=== PATIENT | male | born 1960 | race Caucasian/White ===

== ENCOUNTER → 2022-04-11 13:00 | Outpatient (CLI) | payer BC, SELFPAY ==
--- NOTE | ~2022-04-11 | XR_ITS ---
Left Shoulder Technique: AP and axillary views were obtained. Clinical History: Pain Findings: No fracture or dislocation is seen. Osseous alignment is anatomic. The glenohumeral and acr omioclavicular joint spaces are preserved. Soft tissues are unremarkable. Impression: Unremarkable left shoulder radiographs. Reviewed, dictated and finalized at [facility]. [place] Impression: Unremarkable left shoulder radiographs.
== END ==
PROVIDERS: PCP Internal Medicine; Visit Provider Internal Medicine
DX: M25.512 Pain in left shoulder (principal)
CPT/HCPCS: 73030

== ENCOUNTER 2022-09-29 08:10 | Emergency (ER) | payer BC, SELFPAY ==
[2022-09-29 08:19] VITALS: BP 149/75; PULSE 62; RESP 16; TEMP 36.8; O2SAT 99
--- NOTE | 2022-09-29 08:28 | ED.URI ---
HPI - URI/Sore Throat General Chief Complaint: Upper Respiratory Infection Stated Complaint: sore throat Time Seen by Provider: 09/29/22 08:37 Source: patient and RN notes reviewed Mode of arrival: ambulatory Limitations: no limitations History of Present Illness HPI Narrative: 62 year old male presents with concern for 1 week of sore throat. He reports using spray that doesn't help. He denies fever, aches, chills, sweats, nausea, vomiting, headache. He reports chronic rhinorrhea and nasal congestion for which he uses Afrin, denies any change in that symptom. Denies known sick contacts MD elicited complaint: sore throat Related Data Home Medications Medication Instructions Recorded Confirmed metformin 500 mg tablet,extended 500 mg PO DAILY 09/29/22 09/29/22 release 24 hr rivaroxaban 20 mg tablet (Xarelto) 20 mg PO DAILY 09/29/22 09/29/22 rosuvastatin 5 mg tablet 5 mg PO DAILY 09/29/22 09/29/22 telmisartan 40 mg tablet 40 mg PO DAILY 09/29/22 09/29/22 Allergies Allergy/AdvReac Type Severity Reaction Status Date / Time topiramate Allergy Unknown Hives, Verified 09/29/22 08:19 itching Review of Systems Review of Systems: CONSTITUTIONAL: Denies malaise, chills, sweats, or fever. EYES: Denies visual changes, redness, or discharge. ENT: Reports rhinorrhea, congestion, sore throat. Denies sinus pain, otalgia CARDIOVASCULAR: Denies chest pain, palpitations, or edema. RESPIRATORY: Denies cough. Denies dyspnea. GASTROINTESTINAL: Denies abdominal pain, nausea, vomiting, diarrhea SKIN: Denies rash or itching. MUSCULOSKELETAL: Denies myalgia. NEUROLOGIC: Denies headache. All systems reviewed & are unremarkable except as noted in HPI and below PMFSH Social History Social History Smoking status: Never smoker Comments At time of signature, agree with nursing past medical, surgical, social and family history. There is no relevant family history pertinent to the presenting complaint Exam Narrative: GENERAL: Well-appearing, well-nourished, and in no acute distress. HEAD: Normocephalic EYES: PERRLA, conjunctivae clear ENT: Nares clear, turbinates edematous and erythematous, clear discharge. Mucous membranes moist. TM pearly owens with dull light reflex bilaterally; no tragal tenderness. Oropharynx erythematous without lesions. Tonsils enlarged and without exudate, no drooling, no hoarseness, no trismus, uvula midline. NECK: Supple. No lymphadenopathy CHEST: Clear to auscultation, breath sounds equal. No wheezing, rhonchi, rales, or stridor. No respiratory distress, speaks in full sentences. HEART: Regular rate and rhythm. No murmur heard. SKIN: Warm, dry, no rash. NEURO: Alert and oriented x3. PSYCH: Normal mood and affect Course Course Emergency Course: Patient is aware of diagnosis, understands and agrees to treatment plan. Anticipatory guidance given. Patient agrees to follow-up as directed and is aware of reasons to seek care at the emergency department. Portions of this record may have been created with voice recognition software Level of Care: Express Care Visit Vital Signs Vital signs: Vital Signs Temperature 98.3 F 09/29/22 08:19 Pulse Rate 62 09/29/22 08:19 Respiratory Rate 16 09/29/22 08:19 Blood Pressure 149/75 H 09/29/22 08:19 Pulse Oximetry 99 09/29/22 08:19 Oxygen Delivery Room Air 09/29/22 08:19 Temperature 98.3 F 09/29/22 08:19 Pulse Rate 62 09/29/22 08:19 Respiratory Rate 16 09/29/22 08:19 Blood Pressure 149/75 H 09/29/22 08:19 Pulse Oximetry 99 09/29/22 08:19 Oxygen Delivery Room Air 09/29/22 08:19 Reviewed. MDM - URI/Sore Throat MDM Narrative Medical decision making narrative: Differential diagnosis considered: Penny virus, strep pharyngitis, allergic rhinitis, upper respiratory tract infection, sinusitis, rhinosinusitis, nasopharyngitis. viral pharyngitis, otitis media, otitis externa, pneumonia, bronchitis, viral cough synd
== END 2022-09-29 08:51 | disposition home or self-care (01) ==
PROVIDERS: Emergency Provider Nurse Practitioner; PCP Internal Medicine
DX: J02.9 Acute pharyngitis, unspecified (principal); E78.00 Pure hypercholesterolemia, unspecified; I10 Essential (primary) hypertension; E11.9 Type 2 diabetes mellitus without complications; G47.30 Sleep apnea, unspecified; D68.51 Activated protein C resistance; C95.90 Leukemia, unspecified not having achieved remission; D75.9 Disease of blood and blood-forming organs, unspecified
CPT/HCPCS: 87081; 87880; 99213; G0463

== ENCOUNTER → 2022-10-16 13:24 | Outpatient (CLI) | payer BC, SELFPAY ==
--- NOTE | ~2022-10-16 | CT_ITS ---
CT scan of the Neck Technique: 2.5 mm axial scans were obtained through the neck prior to and following intravenous admin istration of 75 cc Omnipaque 350. Coronal and sagittal reconstructions of the neck were obtained. Dos e reduction technique was used on this scan by utilizing automated exposure control and iterative rec onstruction technique. The dose-length product (DLP) was 909.11 mGy-cm. Clinical History: Swelling, mass Findings: There is no evidence of any significant cervical lymphadenopathy. Several small, nonenlarged jugulo- digastric and posterior cervical lymph nodes are noted bilaterally. Parapharyngeal spaces appear norm al bilaterally. The parotid and submandibular glands appear normal. Questionable minimal prominence of the tonsils without evidence of abscess. The thyroid gland appears normal. Images of the lung apices reveal 8 mm probable groundglass nodule a t the right lung apex. Disc osteophyte complex noted at C6-C7, probable mild to moderate canal stenosis at this level. Impression: Possible mild tonsillitis. No abscess. 8 mm groundglass nodule at the right lung apex. According to Fleischner Society criteria, follow-up C T scan in 6-12 months recommended to reassess. Disc osteophyte complex at C6-C7, with probable mild to possibly moderate canal stenosis at this leve l. Reviewed, dictated and finalized at location . Impression: Possible mild tonsillitis. No abscess. 8 mm groundglass nodule at the right lung apex. According to Fleischner Society criteria, follow-up CT scan in 6-12 months recommended to reassess. Disc osteophyte complex at C6-C7, with probable mild to possibly moderate canal stenosis at this level.
[2022-10-16 13:45] LABS: Estimated Glomerular Filt Rate > 60
== END ==
PROVIDERS: Visit Provider Otolaryngology
DX: R91.8 Other nonspecific abnormal finding of lung field (principal)
CPT/HCPCS: 70492; Q9967

== ENCOUNTER 2023-05-27 14:33 | Outpatient (CLI) | payer BC, SELFPAY ==
--- NOTE | ~2023-05-27 | CT_ITS ---
CT Scan of the Chest without Contrast: Clinical Indication: Pulmonary nodule Technique: Contiguous sections were acquired throughout the chest without intravenous contrast. Dose reduction technique was used on this scan by utilizing automated exposure control and iterative recon struction technique. The dose-length product (DLP) was 344.80 mGy-cm. Findings: There is no evidence of any significant mediastinal, hilar or axillary lymphadenopathy. The mediastin al soft tissues appear normal. There is no evidence of pleural or pericardial effusion. The lungs are clear. No pulmonary nodules or infiltrates are noted. Images through the upper abdomen reveal no abnormalities. Impression: No significant abnormalities seen. Reviewed, dictated and finalized at location . Impression: No significant abnormalities seen.
== END 2023-05-27 14:34 ==
LOC: MICIMG 14:34
PROVIDERS: PCP Internal Medicine; Visit Provider Internal Medicine
DX: R91.1 Solitary pulmonary nodule (principal)
CPT/HCPCS: 71250

== ENCOUNTER 2023-08-04 15:27 | Outpatient (CLI) | payer BC, SELFPAY ==
--- NOTE | ~2023-08-04 | XR_ITS ---
EXAMINATION: XR chest 2V Exam Date/Time: 08/04/2023 15:57 CDT HISTORY: Acute upper respiratory infection Comparison: 08/15/2009. RESULT: Lines, tubes, and devices: None. Lungs and pleura: Clear. Cardiomediastinal silhouette: Stable. Other: No acute osseous or upper abdominal finding. IMPRESSION: No acute cardiopulmonary process. Reviewed, dictated and finalized at location [facility].
== END 2023-08-04 15:28 ==
PROVIDERS: PCP Internal Medicine; Visit Provider Internal Medicine
DX: J06.9 Acute upper respiratory infection, unspecified (principal)
CPT/HCPCS: 71046

== ENCOUNTER 2024-03-19 00:02 | Day surgery (SDC) | payer BC, SELFPAY ==
[2024-03-09 15:15] VITALS: BMI 37.8
--- NOTE | 2024-03-12 14:16 | PC.NURSE ---
Spoke with patient regarding medication XARELTO. Patient verbalizes understanding that the last dose is to be taken on 03/16/24 and the Endoscopist will instruct them when to restart after the procedure.
--- OUTSIDE RECORDS SUMMARY | 2024-03-19 00:05 | XMS_ITS | Clinical Summary ---
Author Organization [facility] Address [address] [place] [address]. [place], [place] [id number] [place] [id number] Care Team Providers Care Coke Oven Patcher Name Role Phone None, Provider MD Primary Care Provider Unavaila ble Allergies Active Allergy Reactions Criticality Noted Date Comments Topiramate Hives Medium 08/08/2010 Medications rivaroxaban (XARELTO) 20 MG Tab tablet 20 mg. 02/08/2020 Active Family History Medical History Relation Comments Cancer Father Cancer Mother Relation Status Comments Father Mother Social History Tobacco Use Types Packs/Day Years Used Date Smoking Tobacco: Never Smokeless Tobacco: Never Tobacco Cessation:Counseling Given: No Comments:not a smoker Alcohol Use Standard Drinks/Week Comments Never 0 (1 standard drink = 0.6 oz pur e alcohol) PHQ-2 Answer Date Recorded PHQ-2 Score - If the patient scores above 3, please move on to questions 3-9 0 11/14/2020 Sex and Gender Information Value Date Recorded Sex Assigned at Not on file Legal Sex Male 11:48 AM CDT Gender Identity Not on file Sexual Orientation Not on file Last Filed Vital Signs Vital Sign Reading Time Taken Comments Blood Pressure 158/92 11/14/2020 1:51 PM CDT Pulse 59 11/14/2020 1:51 PM CDT Temperature - - Respiratory Rate - - Oxygen Saturation - - Inhaled Oxygen Concentration - - Weight 130.7 kg (288 lb 1.6 oz) 11/14/2020 1:51 PM CDT Height 180.3 cm (5' 11 ) 11/14/2020 1:51 PM CDT Body Mass Index 40.18 11/14/2020 1:51 PM CDT Plan of Treatment Health Maintenance Due Date Last Done Comments Colorectal Cancer Screening Colonoscopy (10 Years) 1962 Annual Physical 1965 Hepatitis C 1980 DTaP, Tdap and Td Vaccines ( 1 - Tdap) 1981 Zoster Vaccines (1 of 2) 2012 COVID-19 Vaccine (1 - 2023-2 5 season) 2023 Influenza Adult (#1) 2023 RSV Immunization or 60+ Years (1 - 1-dose 75+ series) 2037 Meningococcal B Vaccine Aged Out No l onger eligible based on patient's age to complete this topic Meningococcal Vaccine Aged Out No bob karan eligible based on patient's age to complete this topic Pneumococcal Vaccine: Pediat rics (0 to 5 Years) and At-Risk Patients (6 to 64 Years) Aged Out No longer eligible b ased on patient's age to complete this topic RSV Immunizations Under 20 Months Aged Out No longer eligible based on patient's age to complete this topic Insurance Care Teams Coke Oven Patcher Relationship Specialty Start Date End Date None, Provider, PCP - General 11/14/20
--- OUTSIDE RECORDS SUMMARY | 2024-03-19 00:06 | XMS_ITS | Data Portability ---
Author Organization [facility] [employer] Address [address] [address] Care Team Providers Care Store Host Name Role Phone JULISSA ALAN Primary Care Provider DAWIT KRUEGER Hematology/Oncology Assessment Encounter Date Assessment Date Assessment LastModified by Organization Details LastModified Time 12/17/2021 12/17/2021 Patient presente d for follow up. Studies ordered as below. Discussed plan with patient/caregiver , who expressed understanding. Follow up as noted below. Not available 12/17/2021 18:00:53 07/01/2022 07/01/2022 Patient presente d for follow up. Studies ordered as below. Discussed plan with patient/caregiver , who expressed understanding. Follow up as noted below. Not available 07/01/2022 19:37:06 10/30/2022 10/30/2022 Recommends healthy nutrition, including a diet rich in fruits and vegetables, minimizing simple carbohydrates, salt, and saturated fats. Encouraged regular cardiovascular exercise such as walking at least 30 minutes daily, 5 times per week. Not available 10/30/2022 17:12:44 03/04/2023 03/04/2023 Recommends healthy nutrition, including a diet rich in fruits and vegetables, minimizing simple carbohydrates, salt, and saturated fats. Encouraged regular cardiovascular exercise such as walking at least 30 minutes daily, 5 times per week. Not available 03/04/2023 17:05:10 08/04/2023 08/04/2023 Patient presente d for follow up. Studies ordered as below. Discussed plan with patient/caregiver , who expressed understanding. Follow up as noted below. Recommends healthy nutrition, including a diet rich in fruits and vegetables, minimizing simple carbohydrates, salt, and saturated fats. Encouraged regular cardiovascular exercise such as walking at least 30 minutes daily, 5 times per week. Not available 08/04/2023 09:02:59 Plan of Treatment Reminders Order Date Submit Date Provider Last Modified By Organization Details Last Modified Time Details Appointments None recorded. Lab hemoglobin A1C/hemoglo bin total, QN, blood 2021 022 [email or web address] Not available 3 08:16:31 CMP, serum or plasma 2021 022 [email or web address] Not available 3 08:16:31 cobalamin, QN, serum or plasma 2021 022 [email or web address] Not available 3 08:16:31 CBC w/ auto diff 2021 022 [email or web address] Not available 3 08:16:31 lipid panel, blood 2022 023 LEONARD Not available 3 17:41:36 CBC w/ auto diff 2022 023 LEONARD Not available 3 17:41:34 PSA, serum or plasma 2022 023 LEONARD Not available 3 17:41:36 hemoglobin A1C/hemoglo bin total, QN, blood 2022 023 [email or web address] Not available 3 09:18:30 CMP, serum or plasma 2022 023 LEONARD Not available 3 17:41:35 cobalamin, QN, serum or plasma 2022 023 LEONARD Not available 3 17:41:37 unlisted lab - HIV-1/2 Ag/Ab w/rfx 2022 023 [email or web address] Not available 3 09:18:30 lipid panel, blood 2022 023 LEONARD Not available 3 14:15:40 microalbumi n/creatinin e, mass ratio, urine 2022 023 LEONARD Not available 3 14:15:41 hemoglobin A1C/hemoglo bin total, QN, blood 2022 023 [email or web address] Not available 3 09:12:35 CMP, serum or plasma 2022 023 LEONARD Not available 3 14:15:39 cobalamin, QN, serum or plasma 2022 023 LEONARD Not available 3 14:15:41 lipid panel, blood 2023 024 [email or web address] 6 [facility], [address], [place], [address], 4 08:40:51 microalbumi n/creatinin e, mass ratio, urine 2023 024 [email or web address] 6 [facility], [address], [place], [address], 4 08:40:51 HbA1c (hemoglobin A1c), blood 2023 024 [email or web address] 6 [facility], [address], [place], [address], 4 08:40:52 CMP, serum or plasma 2023 024 [email or web address] 6 [facility], [address], [place], [address], 4 08:40:52 vitamin B12, serum 2023 024 [email or web address] 6 [facility], [address], [place], [address], 4 08:40:52 vitamin B12, serum 2023 024 [facility], [address], [place], [address], 4 13:33:13 PSA, serum or plasma 2023 024 [facility], [address], [place], [address], 4 13:33:14 microalbumi n/creatinin e, mass ratio, urine 2023 024 manfred [facility], [address], [place], [address], 4 13:33:13 HbA1c (hemoglobin A1c), blood 2023 024 manfred Parra, [address], [place], [address], 4 13:33:13 lipid panel, serum 2023 024 manfred [facility], [address], [place], [address], 4 13:33:13 Referral diabetic ophthalmolo gy referral 2021 022 manfred Ortiz MD, [address] [facility] , [address], [place], [address], 2 13:25:21 physical therapist referral 2021 022 manfred Blackwell, [address], [place], [address], 3 10:39:22 diabetic ophthalmolo gy referral 2022 023 manfred [facility], [address] [place], [address], 3 08:45:13 gastroenter ologist referral 2022 023 manfred Gardner MD, [address] [facility] [address], [place], [address], 4 08:18:49 diabetic ophthalmolo gy referral 2022 023 [facility], [address] [place], [address], 3 08:21:18 gastroenter ologist referral 2023 024 manfred Gardner MD, [address] [facility] [address], [address], 5 08:17:08 diabetic ophthalmolo gy referral 2023 024 [facility], [address] [place], [address], 4 08:16:49 gastroenter ologist referral 2023 024 manfred Gardner MD, [address] [facility] [address], [place], [address], 4 09:13:53 diabetic ophthalmolo gy referral 2023 024 [facility], [address] [place], [address], 4 08:17:58 Procedures None recorded. Surgeries None recorded. Imaging XR, shoulder [address] (Imaging), [address] [facility] [address], [place], [address], 2 13:41:07 CT, chest, w/o contrast 2022 023 manfred [facility], [address], [place], [address], 3 08:18:16 CT, chest, w/o contrast - -- repeat chest CT (to be done around 04/21/23) 2023 024 [facility], [address], [facility] [address], [place], [address], 4 15:58:15 XR, chest, 2 view 2023 024 [facility], [address], [facility] [address], [place], [address], 4 07:09:46 Medication Orders telmisartan 40 mg tablet 2022 023 [facility], [address] [place] [address], [address], 3 19:37:35 metformin ER 500 mg tablet,exte nded release 24 hr 2022 023 [facility], [address] [place] [address], [address], 3 19:37:37 rosuvastati n 5 mg tablet 2022 023 [facility], [address] [place] [address], [address], 3 19:37:35 cyanocobala min (vit B-12) 1,000 mcg sublingual tablet 2022 023 [facility], [address] [place] [address], [address], 3 19:37:37 telmisartan 40 mg tablet 2022 023 [facility], [address] [place] [address], [address], 3 17:10:00 metformin ER 500 mg tablet,exte nded release 24 hr 2022 023 [facility], [address] [place] [address], [address], 3 17:10:04 rosuvastati n 5 mg tablet 2022 023 LEONARD [facility], [address] [place] [address], [address], 3 17:10:01 cyanocobala min (vit B-12) 1,000 mcg sublingual tablet 2022 023 LEONARD [facility], [address] [place] [address], [address], 3 17:10:03 telmisartan 40 mg tablet 2023 024 LEONARD [facility], [address] [place] [address], [address], 4 17:11:21 metformin ER 500 mg tablet,exte nded release 24 hr 2023 024 LEONARD [facility], [address] [place] [address], [address], 4 17:11:22 rosuvastati n 5 mg tablet 2023 024 LEONARD [facility], [address] [place] [address], [address], 4 17:11:21 cyanocobala min (vit B-12) 1,000 mcg sublingual tablet 2023 024 LEONARD [facility], [address] [place] [address], [address], 4 17:11:18 telmisartan 40 mg tablet 2023 024 [facility], [address] [place] [address], [address], 4 09:09:02 metformin ER 500 mg tablet,exte nded release 24 hr 2023 024 [facility], [address] [place] [address], [address], 4 09:09:00 rosuvastati n 5 mg tablet 2023 024 LEONARD [facility], [address] [place] [address], [address], 4 09:08:52 cyanocobala min (vit B-12) 1,000 mcg sublingual tablet 2023 024 [facility], [address] [place] [address], [address], 4 09:08:50 Patient TargetsNo targets recorded. Patient Instructions Encounter Date Encounter Id Patient Instructions Last Modified By Organization Details Last Modified Time 10/30/2022 [id number] Discussed and explained advance directives such as standard forms to the {{patient caregiv er patient and caregiver}}. Face to face discussion lasted for a duration of ___ minutes. [email or web address] Not available 10/30/2022 15:52:48 Reason for Referral Diabetic Ophthalmology Refer ral for Type 2 diabetes mellitus without complication Referring Physician: Julissa Alan Internal Medicine, Encounter Date: 12/17/2021 Physical Therapist Referral for Pain of right shoulder joint Referring Physician: Julissa Alan Internal Medicine, Encounter Date: 12/17/2021 Diabetic Ophthalmology Refer ral for Type 2 diabetes mellitus without complication Referring Physician: Serg Gagnon Medicine, Encounter Date: 07/01/2022 Diabetic Ophthalmology Refer ral for Type 2 diabetes mellitus without complication Referring Physician: Serg Gagnon Medicine, Encounter Date: 10/30/2022 Glove Brusher Referral for Screening for malignant neoplasm of colon Referring Physician: Serg Gagnon Medicine, Encounter Date: 10/30/2022 Diabetic Ophthalmology Refer ral for Type 2 diabetes mellitus without complication Referring Physician: Julissa Alan Internal Medicine, Encounter Date: 03/04/2023 Glove Brusher Referral for Screening for malignant neoplasm of colon Referring Physician: Julissa Alan Internal Medicine, Encounter Date: 03/04/2023 Diabetic Ophthalmology Refer ral for Type 2 diabetes mellitus without complication Referring Physician: Julissa Alan Internal Medicine, Encounter Date: 08/04/2023 Glove Brusher Referral for Screening for malignant neoplasm of colon Referring Physician: Julissa Alan Internal Medicine, Encounter Date: 08/04/2023 Results Created Date Observation Date Name Description Value Unit Range Abnormal Flag Note LastModifiedBy Organization Detail LastModifiedTime 07/09/19 23 07/08/2022 HEMOG LOBIN A1C HGBA1C 5.2 % 4.0-6. 0 Not Available [facility] (Main Location) [facility] [address] ,, [place], [address], 07/09/2022 17:41:34 07/09/19 23 07/08/2022 COMPL ETE CBC W/AUT O DIFF WBC white blood cell count 13.6 thous and/u L 3.5-10 .0 high Not Available [facility] (Main Location) [facility] [address] ,[place], [address], 07/09/2022 17:41:34 07/09/19 23 07/08/2022 COMPL ETE CBC W/AUT O DIFF WBC red blood cell count 4.5 josé on/uL 3.5-5. 5 Not Available [facility] (Main Location) [facility] [address] ,, [place], [address], 07/09/2022 17:41:34 07/09/19 23 07/08/2022 COMPL ETE CBC W/AUT O DIFF WBC hemoglobin 14.7 g/dL 11.5-1 6.5 Not Available [facility] (Main Location) [facility] [address] ,, [place], [address], 07/09/2022 17:41:34 07/09/19 23 07/08/2022 COMPL ETE CBC W/AUT O DIFF WBC hematocrit 43 % 35-55 Not Available [facility]Main Location[facility] [address] ,, [place], [address], 07/09/2022 17:41:34 07/09/19 23 07/08/2022 COMPL ETE CBC W/AUT O DIFF WBC MCH 32 pg 25-35 Not Available [facility] (Main Location[facility] [address] ,, [place], [address], 07/09/2022 17:41:34 07/09/19 23 07/08/2022 COMPL ETE CBC W/AUT O DIFF WBC MCHC 34 g/dL 31-38 Not Available [facility] (Main Location) [address] ,, [place], [address], 07/09/2022 17:41:34 07/09/19 23 07/08/2022 COMPL ETE CBC W/AUT O DIFF WBC MCV 96 fL 75-100 Not Available [facility] (Main Location) [address] ,, [place], [address], 07/09/2022 17:41:34 07/09/19 23 07/08/2022 COMPL ETE CBC W/AUT O DIFF WBC RDW-CV 13 % 11-15 Not Available [facility] (Main Location) [address] ,, [place], [address], 07/09/2022 17:41:34 07/09/19 23 07/08/2022 COMPL ETE CBC W/AUT O DIFF WBC neutrophils% 36.4 % Not Available [facility] (Main Location) [address] ,, [place], [address], 07/09/2022 17:41:34 07/09/19 23 07/08/2022 COMPL ETE CBC W/AUT O DIFF WBC lymphocytes% 56.9 % Not Available [facility] (Main Location) [address] ,, [place], [address], 07/09/2022 17:41:34 07/09/19 23 07/08/2022 COMPL ETE CBC W/AUT O DIFF WBC monocytes% 4.4 % Not Available [facility] (Main Location) [facility] [address] ,, [place], [address], 07/09/2022 17:41:34 07/09/19 23 07/08/2022 COMPL ETE CBC W/AUT O DIFF WBC eosinophil % 1.7 % 0.0-7. 0 Not Available [facility]Main Location[facility] [address] ,, [place], [address], 07/09/2022 17:41:34 07/09/19 23 07/08/2022 COMPL ETE CBC W/AUT O DIFF WBC basophil % 0.3 % 0.0-3. 0 Not Available [facility] (Main Location) [facility] [address] ,, [place], [address], 07/09/2022 17:41:34 07/09/19 23 07/08/2022 COMPL ETE CBC W/AUT O DIFF WBC absolute neutrophils 4.9 cells /uL 1.5-7. 8 Not Available [facility] (Main Location) [facility] [address] ,, [place], [address], 07/09/2022 17:41:34 07/09/19 23 07/08/2022 COMPL ETE CBC W/AUT O DIFF WBC absolute lymphocytes 7.72 cells /uL 0.85-3 .90 high Not Available [facility] (Main Location) [facility] [address] ,, [place], [address], 07/09/2022 17:41:34 07/09/19 23 07/08/2022 COMPL ETE CBC W/AUT O DIFF WBC absolute monocytes 0.6 cells /uL 0.2-1. 0 Not Available [facility] (Main Location) [facility] [address] ,, [place], [address], 07/09/2022 17:41:34 07/09/19 23 07/08/2022 COMPL ETE CBC W/AUT O DIFF WBC absolute eosinophils 0.2 cells /uL 0.0-0. 5 Not Available [facility] (Main Location) [facility] [address] ,, [place], [place], [address], 07/09/2022 17:41:34 07/09/19 23 07/08/2022 COMPL ETE CBC W/AUT O DIFF WBC absolute basophils 0.0 cells /uL 0.0-0. 2 Not Available [facility] (Main Location) [facility] [address] ,, [place], [place], [address], 07/09/2022 17:41:34 07/09/19 23 07/08/2022 COMPL ETE CBC W/AUT O DIFF WBC platelet count 120 thous and/u L 100-40 0 Not Available [facility] (Main Location) [facility] [address] ,, [place], [address], 07/09/2022 17:41:34 07/09/19 23 07/08/2022 CMP (COMP REHEN SIVE METAB OLIC PANEL ) glucose 85 mg/dL 74-99 Not Available [facility] (Main Location) [facility] [address] ,, [place], [address], 07/09/2022 17:41:35 07/09/19 23 07/08/2022 CMP (COMP REHEN SIVE METAB OLIC PANEL ) urea nitrogen, blood (BUN) 13 mg/dL 6-20 Not Available [facility] (Main Location) [facility] [address] ,, [place], [address], 07/09/2022 17:41:35 07/09/19 23 07/08/2022 CMP (COMP REHEN SIVE METAB OLIC PANEL ) total bilirubin 2.7 mg/dL 0.0-1. 2 high Not Available [facility] (Main Location) [address] [place], [place] [address] ,, [place], [address], 07/09/2022 17:41:35 07/09/19 23 07/08/2022 CMP (COMP REHEN SIVE METAB OLIC PANEL ) total protein 7.3 g/dL 6.6-8. 7 Not Available [facility] (Main Location) [facility] ,, [place], [address], 07/09/2022 17:41:35 07/09/19 23 07/08/2022 CMP (COMP REHEN SIVE METAB OLIC PANEL ) alanine aminotransfe rase (ALT) 17 U/L 0-41 Not Available [facility] (Main Location) [address] [place] [address] [address] ,, [place], [address], 07/09/2022 17:41:35 07/09/19 23 07/08/2022 CMP (COMP REHEN SIVE METAB OLIC PANEL ) alkaline phosphatase 86 U/L 40-130 Not Available [facility] (Main Location) [address] [place], [place] [address] ,, [place], [address], 07/09/2022 17:41:35 07/09/19 23 07/08/2022 CMP (COMP REHEN SIVE METAB OLIC PANEL ) aspartate aminotransfe rase (AST) 23 U/L 0-40 Not Available [facility] (Main Location) [address] [place], [place] [address] ,, [place], [address], 07/09/2022 17:41:35 07/09/19 23 07/08/2022 CMP (COMP REHEN SIVE METAB OLIC PANEL ) calcium 9.4 mg/dL 8.6-10 .2 Not Available [facility] (Main Location) [address] [place] [address] [address] ,, [place], [address], 07/09/2022 17:41:35 07/09/19 23 07/08/2022 CMP (COMP REHEN SIVE METAB OLIC PANEL ) albumin 4.5 g/dL 3.5-5. 2 Not Available [facility] (Main Location) [address] [place] [address] [address] ,, [place], [address], 07/09/2022 17:41:35 07/09/19 23 07/08/2022 CMP (COMP REHEN SIVE METAB OLIC PANEL ) CO2 26 mmol/ L 23-31 Not Available [facility] (Main Location) [facility] [address] ,, [place], [address], 07/09/2022 17:41:35 07/09/19 23 07/08/2022 CMP (COMP REHEN SIVE METAB OLIC PANEL ) creatinine, serum 0.8 mg/dL 0.7-1. 2 Not Available [facility] (Main Location) [facility] [address] ,, [place], [address], 07/09/2022 17:41:35 07/09/19 23 07/08/2022 CMP (COMP REHEN SIVE METAB OLIC PANEL ) sodium, serum 136 mmol/ L 136-14 5 Not Available [facility] (Main Location) [facility] [address] ,, [place], [address], 07/09/2022 17:41:35 07/09/19 23 07/08/2022 CMP (COMP REHEN SIVE METAB OLIC PANEL ) potassium, serum 4.3 mmol/ L 3.5-5. 1 Not Available [facility] (Main Location) [facility] [address] ,, [place], [address], 07/09/2022 17:41:35 07/09/19 23 07/08/2022 CMP (COMP REHEN SIVE METAB OLIC PANEL ) chloride, serum 100 mmol/ L 98-107 Not Available [facility] (Main Location) [facility] [address] ,, [place], [address], 07/09/2022 17:41:35 07/09/19 23 07/08/2022 CMP (COMP REHEN SIVE METAB OLIC PANEL ) eGFR 100 >59 Persi stent reduc tion for 3 month s or more in an eGFR <60 mL/mi n/1.7 3 m2 defin es CKD. Patie nts with eGFR value s>/=6 0 mL/mi n/1.7 3 m2 may also have CKD if evide nce of persi stent protu niuri a is prese nt. Addit ional infor brigette orosco may be found at www.k doqi. org. Not Available [facility] (Main Location) [address] ,, [place], [place], [address], 07/09/2022 17:41:35 07/09/19 23 07/08/2022 HIV-1 /2 AG & AB HIV antibody Non-Re active non-re active Not Available [facility] (Main Location) [address] ,, [place], [address], 07/09/2022 17:41:35 07/09/19 23 07/08/2022 HIV-1 /2 AG & AB HIV P24 antigen Non-Re active non-re active Not Available [facility] (Main Location) [address] ,, [place], [place], [address], 07/09/2022 17:41:35 07/09/19 23 07/08/2022 LIPID PANEL trigylceride s 79 mg/dL 0-150 Not Available [facility] (Main Location) [address] ,, [place], [address], 07/09/2022 17:41:36 07/09/19 23 07/08/2022 LIPID PANEL cholesterol 95 mg/dL 0-200 Not Available [facility] (Main Location) [address] ,, [place], [address], 07/09/2022 17:41:36 07/09/19 23 07/08/2022 LIPID PANEL uhdl 35 mg/dL 35-55 Not Available [facility] (Main Location) [address] ,, [place], [place], [address], 07/09/2022 17:41:36 07/09/19 23 07/08/2022 LIPID PANEL LDL, calculated 44 mg/dL 0-100 Not Available [facility] (Main Location) [address] ,, [place], [address], 07/09/2022 17:41:36 07/09/19 23 07/08/2022 LIPID PANEL LDL/HDL ratio 1 mg/dL 0-5 Not Available [facility]Main Location) [facility] [address] ,, [place], [address], 07/09/2022 17:41:36 07/09/19 23 07/08/2022 LIPID PANEL VLDL 15.8 mg/dL 5.0-40 .0 Not Available [facility] (Main Location) [facility] [address] ,, [place], [address], 07/09/2022 17:41:36 07/09/19 23 07/08/2022 LIPID PANEL cholesterol/ HDL ratio 2.71 0.00-5 .00 Not Available [facility] (Main Location) [facility] [address] ,, [place], [address], 07/09/2022 17:41:36 07/09/19 23 07/08/2022 PROST ATE-S PECIF IC ANTIG EN (PSA) SCREE N PSA, total 0.5 NG/mL 0.0-4. 0 PSA is an elect sebastian milum inesc ence immun oassa y run on the Sebastian [address] 6000. Not Available [facility] (Main Location) [address] ,, [place], [address], 07/09/2022 17:41:36 07/09/19 23 07/08/2022 VITAM IN B12 vitamin B12 II 892 pg/mL 232-12 45 Not Available [facility] (Main Location) [facility] [address] ,, [place], [address], 07/09/2022 17:41:36 07/09/19 23 07/08/2022 HEMOG LOBIN A1C HGBA1C 5.2 % 4.0-6. 0 Not Available [facility] (Main Location) [facility] [address] ,, [place], [address], 07/09/2022 17:41:50 07/09/19 23 07/08/2022 HIV-1 /2 AG & AB HIV antibody Non-Re active non-re active Not Available [facility] (Main Location) [address] ,, [place], [address], 07/09/2022 17:41:52 07/09/19 23 07/08/2022 HIV-1 /2 AG & AB HIV P24 antigen Non-Re active non-re active Not Available [facility] (Main Location) [address] ,, [place], [address], 07/09/2022 17:41:52 11/01/19 23 10/31/2022 HEMOG LOBIN A1C HGBA1C 5.5 % 4.0-6. 0 Not Available [facility] (Main Location) [facility] ,, [place], [address], 11/01/2022 14:15:39 11/01/19 23 10/31/2022 CMP (COMP REHEN SIVE METAB OLIC PANEL ) glucose 88 mg/dL 74-99 Not Available [facility] (Main Location) [facility] ,, [place], [address], 11/01/2022 14:15:39 11/01/19 23 10/31/2022 CMP (COMP REHEN SIVE METAB OLIC PANEL ) urea nitrogen, blood (BUN) 16 mg/dL 8-23 Not Available [facility] (Main Location) [facility] ,, [place], [address], 11/01/2022 14:15:39 11/01/19 23 10/31/2022 CMP (COMP REHEN SIVE METAB OLIC PANEL ) total bilirubin 2.6 mg/dL 0.0-1. 2 high Not Available [facility] (Main Location) [facility] ,, [place], [address], 11/01/2022 14:15:39 11/01/19 10/31/2022 CMP (COMP REHEN SIVE METAB OLIC PANEL ) total protein 7.2 g/dL 6.6-8. 7 Not Available [facility] (Main Location) [facility] ,, [place], [address], 11/01/2022 14:15:39 11/01/19 23 10/31/2022 CMP (COMP REHEN SIVE METAB OLIC PANEL ) alanine aminotransfe rase (ALT) 19 U/L 0-41 Not Available [facility] (Main Location) [address] [place], [place] [address] ,, [place], [place], [address], 11/01/2022 14:15:39 11/01/19 23 10/31/2022 CMP (COMP REHEN SIVE METAB OLIC PANEL ) alkaline phosphatase 68 U/L 40-130 Not Available [facility] (Main Location) [facility] [address] ,, [place], [address], 11/01/2022 14:15:39 11/01/19 23 10/31/2022 CMP (COMP REHEN SIVE METAB OLIC PANEL ) aspartate aminotransfe rase (AST) 21 U/L 0-40 Not Available [facility] (Main Location) [facility] ,, [place], [address], 11/01/2022 14:15:39 11/01/19 23 10/31/2022 CMP (COMP REHEN SIVE METAB OLIC PANEL ) calcium 9.4 mg/dL 8.6-10 .2 Not Available [facility] (Main Location) [facility] [address] ,, [place], [address], 11/01/2022 14:15:39 11/01/19 23 10/31/2022 CMP (COMP REHEN SIVE METAB OLIC PANEL ) albumin 4.4 g/dL 3.5-5. 2 Not Available [facility] (Main Location) [address] [place], [place] [address] ,, [place], [address], 11/01/2022 14:15:39 11/01/19 23 10/31/2022 CMP (COMP REHEN SIVE METAB OLIC PANEL ) CO2 29 mmol/ L 23-31 Not Available [facility] (Main Location) [address] ,, [place], [address], 11/01/2022 14:15:39 11/01/19 23 10/31/2022 CMP (COMP REHEN SIVE METAB OLIC PANEL ) creatinine, serum 0.9 mg/dL 0.7-1. 2 Not Available [facility] (Main Location) [address] [address] ,, [place], [address], 11/01/2022 14:15:39 11/01/19 23 10/31/2022 CMP (COMP REHEN SIVE METAB OLIC PANEL ) sodium, serum 139 mmol/ L 136-14 5 Not Available [facility] (Main Location) [address] [place], [place] [address] ,, [place], [address], 11/01/2022 14:15:39 11/01/19 23 10/31/2022 CMP (COMP REHEN SIVE METAB OLIC PANEL ) potassium, serum 4.4 mmol/ L 3.5-5. 1 Not Available [facility] (Main Location) [facility] ,, [place], [address], 11/01/2022 14:15:39 11/01/19 23 10/31/2022 CMP (COMP REHEN SIVE METAB OLIC PANEL ) chloride, serum 103 mmol/ L 98-107 Not Available [facility] (Main Location) [address] [place], [place] [address] ,, [place], [address], 11/01/2022 14:15:39 11/01/19 23 10/31/2022 CMP (COMP REHEN SIVE METAB OLIC PANEL ) eGFR 99 >59 Persi stent reduc tion for 3 month s or more in an eGFR <60 mL/mi n/1.7 3 m2 defin es CKD. Patie nts with eGFR value s>/=6 0 mL/mi n/1.7 3 m2 may also have CKD if evide nce of persi stent protu niuri a is prese nt. Addit ional infor brigette orosco may be found at [email or web address] org. Not Available [facility] (Main Location) [address] ,, [place], [address], 11/01/2022 14:15:39 11/01/19 23 10/31/2022 LIPID PANEL trigylceride s 120 mg/dL 0-150 Not Available [facility] (Main Location) [address] ,, [place], [address], 11/01/2022 14:15:40 11/01/19 23 10/31/2022 LIPID PANEL cholesterol 133 mg/dL 0-200 Not Available [facility] (Main Location) [address] ,, [place], [address], 11/01/2022 14:15:40 11/01/19 23 10/31/2022 LIPID PANEL uhdl 37 mg/dL 35-55 Not Available [facility] (Main Location) [address] ,, [place], [address], 11/01/2022 14:15:40 11/01/19 23 10/31/2022 LIPID PANEL LDL, calculated 72 mg/dL 0-100 Not Available [facility] (Main Location) [address] ,, [place], [address], 11/01/2022 14:15:40 11/01/19 23 10/31/2022 LIPID PANEL LDL/HDL ratio 2 mg/dL 0-5 Not Available [facility] (Main Location) [address] ,, [place], [address], 11/01/2022 14:15:40 11/01/19 23 10/31/2022 LIPID PANEL VLDL 24.0 mg/dL 5.0-40 .0 Not Available [facility] (Main Location) [address] ,, [place], [place], [address], 11/01/2022 14:15:40 11/01/19 23 10/31/2022 LIPID PANEL cholesterol/ HDL ratio 3.59 0.00-5 .00 Not Available [facility] (Main Location) [address] ,, [place], [address], 11/01/2022 14:15:40 11/01/19 23 10/31/2022 VITAM IN B12 vitamin B12 II 843 pg/mL 232-12 45 Not Available [facility] (Main Location) [address] ,, [place], [address], 11/01/2022 14:15:41 11/01/19 23 10/31/2022 URINE MICRO ALBUM IN/CR EATIN INE RATIO urine microalbumin 3 mg/L 0-30 Not Available [facility]Main Location) [facility] [address] [address] ,, [place], [address], 11/01/2022 14:15:41 11/01/19 23 10/31/2022 URINE MICRO ALBUM IN/CR EATIN INE RATIO urine creatinine 72.30 mg/dL 39.00- 259.00 Not Available [facility] (Main Location) [address] ,, [place], [address], 11/01/2022 14:15:41 11/01/19 23 10/31/2022 URINE MICRO ALBUM IN/CR EATIN INE RATIO urine microalbumin /creatinine ratio 4 mg/g_ creat inine 0-30 Not Available [facility] (Main Location) [address] ,, [place], [address], 11/01/2022 14:15:41 11/01/19 23 10/31/2022 HEMOG LOBIN A1C HGBA1C 5.5 % 4.0-6. 0 Not Available [facility] (Main Location) [facility] [address] ,, [place], [address], 11/01/2022 14:15:44 12/08/19 22 12/06/2021 (MALLY) ankle brach ial index * No observ ation record ed. [address], [facility] [address], [place], [address], 12/17/2021 17:50:57 04/11/19 23 04/11/2022 XR, shoul mihaela, 2 or more view No observ ation record ed. [address] (Imaging) [address], [place], [address], 07/01/2022 19:41:13 05/04/19 23 US, doppl er, arter ial No observ ation record ed. [email or web address] Not Available 2022 19:41:13 10/31/19 23 10/16/2022 CT, neck, w/ contr ast No observ ation record ed. [address], [place], [address], 03/04/2023 17:15:26 05/28/19 24 05/27/2023 CT, chest , w/o contr ast No observ ation record ed. [facility] [address], [place], [address], 05/28/2023 19:00:41 08/05/19 24 08/04/2023 XR, chest , 2 view No observ ation record ed. [email or web address] [facility] [address], [place], [address], 08/19/2023 08:18:25 Result Notes None recorded. Problems Name Problem SNOMED Code Status Onset Date Resolution Date Notes Provider Name and Address Organization Details Recorded Time Pain of right shoulder joint 6772786584306 9100 Active 2022 Julissa Alan MD [address], [place], [address], [place] - [facility] 3 01:08:16 Type 2 diabetes mellitus without complicatio n 694140901 Active 2022 Julissa Alan MD [address], [place], [address], [facility] 3 19:24:37 Chronic lymphoid leukemia, disease 52812165 Active 2022 Julissa Alan MD [address], [place], [address], [facility] 3 19:24:37 Chronic migraine without aura 4564497539564 05 Active 2022 Julissa Alan MD [address], [place], [address], [facility] 3 19:24:37 Dysuria 79432739 Active 2022 Julissa Alan MD [address], [place], [address], [facility] 3 19:24:37 Essential hypertensio n 53741869 Active 2022 Julissa Alan MD [address], [place], [address], [facility] 3 19:36:58 Leukocytosi s 381904572 Active 2022 Julissa Alan MD [address], [place], [address], [facility] 3 11:54:57 Total bilirubin above reference range 3464120550491 08 Active 2022 Julissa Alan MD [address], [place], [address], [facility] 3 08:01:40 Solitary nodule of lung 572680427 Active 2022 Julissa Alan MD [address], [place], [address], [facility] 3 16:40:22 Problem Notes None recorded. Procedures Surgical History Date Name Laterality Status Provider Name and Address Organization Details Recorded Time Vasectomy completed Julissa Alan MD [address], [place], [address], [facility] 05/16/2021 10:57:05 nasal septoplasty completed Julissa Alan MD [address], [place], [address], [place] [facility] 05/16/2021 10:57:35 Imaging Results Imaging Date Name Status LastModified by Organiz ation Details LastModified Time 12/06/2021 (MALLY) ankle brachial index* completed [address], [facility] [address], [place], [address], 12/17/2021 17:50:57 04/11/2022 XR, shoulder, 2 or more view completed [address] (Imaging) [address], [place], [address], 07/01/2022 19:41:13 05/03/2022 US, doppler, arterial completed [email or web address] Information not available 07/01/2022 19:41:13 10/16/2022 CT, neck, w/ contrast completed [address] [facility] [address], [place], [address], 03/04/2023 17:15:26 05/27/2023 CT, chest, w/o contrast completed [facility] [address], [place], [address], 05/28/2023 19:00:41 08/04/2023 XR, chest, 2 view completed [facility] [address], [place], [address], 08/19/2023 08:18:25 Procedure Notes None recorded. Medical Equipment None Reported. Allergies No known drug allergies Medications Name Sig Start Date Stop Date Status Note LastModified by Organization Details LastModified Time amoxicilli n 500 mg capsule 05/16 completed Not Available Not Available Not Available FreeStyle Lancets 28 gauge active Not Available Not Available Not Available acetaminop hen 300 mg-codeine 30 mg tablet 06/14 completed Not Available Not Available Not Available tramadol 50 mg tablet TK 1 T PO Q 6 TO 8 H PRN 05/15 completed Not Available Not Available Not Available telmisarta n 40 mg tablet Take 1 tablet every day by oral route in the evening. 2023 active Not Available Not Available Not Avai lable cyanocobal gilmore (vit B-12) 1,[address] 1 tablet every day by sublingu al route in the morning. 2023 active Not Available Not Available Not Avai lable methylpred nisolone 4 mg tablets in a dose pack TAKE 6 TABLETS ON DAY 1 DIRECTED ON PACKAGE AND DECREASE BY 1 TAB EACH DAY FOR A TOTAL OF 6 DAYS 10/30 completed Not Available Not Available Not Available metformin ER 500 mg tablet,ext ended release 24 hr Take 1 tablet twice a day by oral route. 2023 active Not Available Not Available Not Avai lable amoxicilli n 875 mg-potassi um clavulanat e 125 mg tablet TAKE 1 TABLET BY MOUTH TWICE A DAY active Not Available Not Available No t Available Vitamin B-12 2,500 mcg sublingual tablet 1 tab every Morning (under tongue for 5 min then swallow) . 2021 active Not Available Not Available Not Avai lable cholestyra mine (with sugar) 4 gram powder for susp in a packet Take 1 packet twice a day by oral route as needed. active Not Available Not Available No t Available rosuvastat in 5 mg tablet Take 1 tablet every day by oral route in the evening. 2023 active Not Available Not Available Not Avai lable FreeStyle Lite Strips active Not Available Not Available Not Available Xarelto 20 mg tablet active Not Available Not Available No t Available FreeStyle Hilda 2 Sensor kit active Not Available Not Available N ot Available FreeStyle Hilda 2 [place] active Not Available Not Available Not Available Qulipta 10 mg tablet Take 1 tablet every day by oral route. 12/17 completed -- Pt has not been taking Not Available Not Available Not Available Vitals Date Recorded Body height Respiratory rate Body mass index (BMI) Body weight Body temperature Heart rate Systolic blood pressure Diastolic blood pressure Provider Name and Address Organization Details Last Updated DateTime 3 180.34 cm 16 /min 36.8 kg/m2 790613. 39 g 97.6 [degF] 50 /min 129 mm[Hg] 74 mm[Hg] Kamilah Helton [facility] 3 18:21:08 Date Recorded Body height Respiratory rate Body mass index (BMI) Body weight Body temperature Heart rate Systolic blood pressure Diastolic blood pressure Provider Name and Address Organization Details Last Updated DateTime 3 180.34 cm 16 /min 37.4 kg/m2 368918. 76 g 97.9 [degF] 50 /min 138 mm[Hg] 80 mm[Hg] Kamilah Helton [facility] 3 15:58:54 Date Recorded Body height Heart rate Respiratory rate Body temperature Body mass index (BMI) Body weight Provider Name and Address Organization Details Last Updated DateTime 4 180.34 cm 57 /min 16 /min 97.3 [degF] 39.1 kg/m2 735712. 86 g [facility] 4 15:37:37 Date Recorded Systolic blood pressure Diastolic blood pressure Provider Name and Address Organization Details Last Updated DateTime 03/04/2023 135 mm[Hg] 88 mm[Hg] Julissa Alan MD [address] [facility] [address], [place], [address], [facility] 03/04/2023 17:14:55 Date Recorded Body height Heart rate Respiratory rate Body temperature Body mass index (BMI) Body weight Systolic blood pressure Diastolic blood pressure Provider Name and Address Organization Details Last Updated DateTime 4 180.34 cm 64 /min 16 /min 96.9 [degF] 37.7 kg/m2 641391. 94 g 137 mm[Hg] 81 mm[Hg] [facility] 4 08:21:59 Date Recorded Body height Body mass index (BMI) Body weight Respiratory rate Body temperature Heart rate Systolic blood pressure Diastolic blood pressure Provider Name and Address Organization Details Last Updated DateTime 2 180.34 cm 36.3 kg/m2 572079. 02 g 16 /min 97.8 [degF] 51 /min 131 mm[Hg] 81 mm[Hg] [facility] 2 17:00:31 Social History Question Answer Notes LastModified by Organizat ion Details LastModified Time Tobacco Smoking Status Former Smoker smoked 2 years in 1979 and that was all Merari Meza [facility] 12/17/2021 17:02:14 Do You Have An Advance Directive? No [email or web address] Information not available 03/04/2023 What Is Your Level Of Alcohol Consumption? None Information not available 05/16/2021 Do You Wear A Helmet When Biking? Yes Information not available 03/04/2023 Are You Blind Or Do You Have Difficulty Seeing? No [email or web address] Information not available 03/04/2023 Is Blood Transfusion Acceptable In An Emergency? Yes [email or web address] Information not available 03/04/2023 What Is Your Level Of Caffeine Consumption? Moderate [email or web address] Information not available 03/04/2023 What Is Your Code Status? Full Code [email or web address] Information not available 03/04/2023 Are You Currently Employed? Yes [email or web address] Information not available 03/04/2023 Are You Deaf Or Do You Have Serious Difficulty Hearing? No [email or web address] Information not available 03/04/2023 What Type Of Diet Are You Following? REGULAR [email or web address] Information not available 03/04/2023 What Is The Highest Grade Or Level Of School You Have Completed Or The Highest Degree You Have Received? 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 [email or web address] Information not available 03/04/2023 Have There Been Any Changes To Your Family Or Social Situation? No [email or web address] Information not available 03/04/2023 What Is The Fluoride Status Of Your Home? Non-fluorida antoine [email or web address] Information not available 03/04/2023 Are There Any Guns Present In Your Home? No [email or web address] Information not available 03/04/2023 Do You Use Insect Repellent Routinely? No [email or web address] Information not available 03/04/2023 What Was The Date Of Your Most Recent Tobacco Screening? 08/04/2023 [email or web address] Information not available 08/04/2023 How Many Children Do You Have? 3 [email or web address] Information not available 03/04/2023 Do You Have Any Pets? Yes [email or web address] Information not available 03/04/2023 Do You Use Protection During Sex? No Information not available 05/16/2021 What Is Your Relationship Status? [email or web address] Information not available 03/04/2023 Do You Use Your Seat Belt Or Car Seat Routinely? Yes [email or web address] Information not available 03/04/2023 Are You Sexually Active? Yes Information not available 05/16/2021 Do You Have Smoke And Carbon Monoxide Detectors In Your Home? Yes [email or web address] Information not available 03/04/2023 At What Age Did You Start Smoking Tobacco? 24 [email or web address] Information not available 03/04/2023 Are You Passively Exposed To Smoke? No [email or web address] Information not available 03/04/2023 Do You Feel Stressed (tense, Restless, Nervous, Or Anxious, Or Unable To Sleep At Night)? KO4828-3 [email or web address] Information not available 03/04/2023 Do You Use Any Illicit Or Recreational Drugs? No [email or web address] Information not available 03/04/2023 Do You Use Sunscreen Routinely? No [email or web address] Information not available 03/04/2023 How Many Years Have You Smoked Tobacco? 5 [email or web address] Information not available 03/04/2023 Do You Or Have You Ever Used Any Other Forms Of Tobacco Or Nicotine? Yes [email or web address] Information not available 03/04/2023 Sex: Male Functional Status Question Answer Note LastModified by Organizat ion Details LastModified Time Do you have difficulty walking or climbing stairs? No [email or web address] Information not available 03/04/2023 Do you have transportation difficulties? No [email or web address] Information not available 03/04/2023 Do you have difficulty doing errands alone? No [email or web address] Information not available 03/04/2023 Are you able to care for yourself? Yes [email or web address] Information not available 03/04/2023 Do you have difficulty dressing or bathing? No [email or web address] Information not available 03/04/2023 What is your exercise level? None Information not available 03/04/2023 Mental Status Question Answer Note LastModified by Organization D etails LastModified Time Do you have difficulty concentrating, remembering or making decisions? No [email or web address] Information no t available 03/04/2023 Family History Relationship Description Onset Age of this Age Resolved Age Notes LastModified by Organization Details LastModified Time Mother Screening for malignant neoplasm of cervix 70 [email or web address] Not available 2023 08:17:36 Father Suspected lung cancer 52 -- at 52 y/o (1 month after diagno sis) [email or web address] Not available 08/04/2023 08:17:36 Brother Diabetes mellitus ([place] ) Not available 05/16/2021 10:55:21 Brother Heart disease 65 ([place]ael ) -- had CABG x 3v at 63 y/o Not available 05/16/2021 10:56:02 Medical History No medical history recorded. Past Encounters Encounter ID Performer Location Encounter Start Date Encounter Closed Date Diagnosis/Indication Diagnosis SNOMED-CT Code Diagnosis ICD10 Code Diagnosis Note [id number] Julissa Alan MD [place] [employer], [facility] [address] [place] [address] 05/16/2021 09:13:37 05/16/2021 11:19:25 History of recurrent deep vein thrombosis 5536232238 71588 Z86.718 d/y heterozygo us factor V Leiden mutation. Venous Doppler study on 05/28/2015 showed chronic DVT in the right femoral vein and right gastrocnem ius vein He is maintained on [facility] Xarelto 20 mg daily.Pt is following hematologi Dr Filipe Chang Chronic ly mphoid leukemia in remission 56636770 C91.11 status post FCR, treated in August 2010, in continuous complete remission. Following Dr Yahir Green mi graine without aura [id number] 36894 G43.709 -- issued Aimovig by Dr Lashanda edgar but pt could not start on it due to cost-- Topamax worked but pt has allergic reaction w/ facial swelling-- Managed by neurologis t Dr Lashanda edgar Dysuria 97151952 R30.9 (started on 05/07/21) -- burning in the in beginning of micturitio n-- sx improved markedly improved since taken left over Amoxicilli n from his Dentist; and start on Cranberry. Hyperlipid emia screening 988343440 Z13.220 Hepatitis C screening 41 1547049 Z11.59 Active or passive immunization 526605282 Z23 -- pt does not want Flu shot [id number] Julissa Alan MD [facility] [employer], [facility] [address] [place] [address] 05/22/2021 08:44:56 05/22/2021 10:56:14 Type 2 diabetes mellitus without complication 070420570 E11.9 [id number] Julissa Alan MD [place] [employer] [facility], [facility] [address] [place] [address] 06/14/2021 11:00:01 06/14/2021 13:05:47 Adult health examination 692059978 Z00.00 Type 2 wilmer betes mellitus without complication 060822936 E11.9 -- check labs on 08/16/21 History of recurrent deep vein thrombosis 2624349669 78511 Z86.718 d/y heterozygo us factor V Leiden mutation. Venous Doppler study on 05/28/2015 showed chronic DVT in the right femoral vein and right gastrocnem ius vein He is maintained on [facility] Xarelto 20 mg daily.Pt is following hematologi st Dr Filipe Chang Chronic ly mphoid leukemia in remission 58927829 C91.11 status post FCR, treated in August 2010, in continuous complete remission. Following Dr Krueger Chronic mi graine without aura [id number] 87530 G43.709 -- issued Aimovig by Dr Lashanda edgar but pt could not start on it due to cost-- Topamax worked but pt has allergic reaction w/ facial swelling-- Managed by neurologis t Dr Lashanda edgar Dysuria 11671482 R30.9 (started on 05/07/21) -- burning in the in beginning of micturitio n-- resolved since on diabetic med Hyperlipid emia screening 947705096 Z13.220 -- controlled Hepatitis C screening 41 3364619 Z11.59 -- tested negative for Hep C on 05/16/21 Active or passive immunization 843525209 Z23 -- pt does not want Flu shot [id number] Julissa Alan MD [facility] [employer], [email or web address] [address] [place] [address] 09/13/2021 11:42:50 09/13/2021 13:53:43 Type 2 diabetes mellitus without complication 985959621 E11.9 -- check labs on 08/16/21Low Vit B12 -- start over-the-c ounter sublingual Vit B12 (between 2,500-5,00 0 mcg) 1 tab every Morning (under tongue for 5 min then swallow).- - check lab(s) on 10/02/21 (2 weeks after starting on Telmisarta n) History of recurrent deep vein thrombosis 6162363298 15732 Z86.718 d/y heterozygo us factor V Leiden mutation. Venous Doppler study on 05/28/2015 showed chronic DVT in the right femoral vein and right gastrocnem ius vein He is maintained [facility] Xarelto 20 mg daily.Pt is following hematologi Dr Filipe Chang Chronic ly mphoid leukemia in remission [id number] C91.11 status post FCR, treated in August 2010, in continuous complete remission. Following Dr Krueger-- check lab(s) on 10/02/21 (2 weeks after starting on Telmisarta n) Chronic mi graine without aura [id number] 69396 G43.709 -- issued Aimovig by Dr Lashanda edgar but pt could not start on it due to cost-- Topamax worked but pt has allergic reaction w/ facial swelling-- Managed by neurologis t Dr Lashanda edgar-- issued Qulipta but pt had not started on it has he had not had migraines lately Hyperlipid emia screening 114227173 Z13.220 -- controlled Hepatitis C screening 41 7340117 Z11.59 -- tested negative for Hep C on 05/16/21 Active or passive immunization 754882661 Z23 -- pt does not want Flu shot Screening for malignant neoplasm of colon 696325110 Z12.11 -- pt reported that he had a normal screening colonoscop y when he was 52 y/o (his GI told him that his colonoscop y was 'spectacul octaviano good'). Screening for malignant neoplasm of prostate 001130612 Z12.5 -- PSA level of 1.1 (05/16/21) Body mass index 30+ - obesity 273525427 Z68.36 -- advised weight loss; pt lost 5 # since his last visit-- pt's BMI today is 36.5 (ideal is between 20-25) Dorsalis pulse absent 30 2429769 R09.89 Essential hypertension 45226608 I10 -- check lab(s) on 10/02/21 (2 weeks after starting on Telmisarta n) [id number] Julissa Alan MD [facility] [address] [place] [address] 12/17/2021 16:12:58 12/17/2021 18:04:48 Type 2 diabetes mellitus without complication 783033293 E11.9 -- check labs on 08/16/21Low Vit B12 -- start over-the-c ounter sublingual Vit B12 (between 2,500-5,00 0 mcg) 1 tab every Morning (under tongue for 5 min then swallow).- - A1c improved from 10.7 (05/16/21) --> 5.4 ((11/12/21) from labs ordered by Dr Dawit Krueger-- recheck labs around History of recurrent deep vein thrombosis 6558047681 71201 Z86.718 d/y heterozygo us factor V Leiden mutation. Venous Doppler study on 05/28/2015 showed chronic DVT in the right femoral vein and right gastrocnem ius vein 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.Pt is following hematologi st Dr Filipe Chang Chronic ly mphoid leukemia, disease 29795078 C91.10 Chronic mi graine without aura [id number] 57923 G43.709 -- issued Aimovig by Dr Lashanda edgar but pt could not start on it due to cost-- Topamax worked but pt has allergic reaction w/ facial swelling-- Managed by neurologis t Dr Lashanda edgar-- issued Qulipta but pt had not started on it has he had not had migraines lately Dysuria 37283569 R30.9 (started on 05/07/21) -- burning in the in beginning of micturitio n-- resolved since on diabetic med Hyperlipid emia screening 641736088 Z13.220 -- controlled Hepatitis C screening 41 5271840 Z11.59 -- tested negative for Hepatitis C on 05/16/21 Active or passive immunization 264946270 Z23 -- pt does not want Flu shot Pain of ri ght shoulder joint [id number] 2664517 M25.511 [id number] Julissa Alan MD [facility] [address] [place] [address] 07/01/2022 17:19:35 07/01/2022 19:44:21 Pain of right shoulder joint [id number] 5401898 M25.511 Type 2 wilmer betes mellitus without complication 236220857 E11.9 -- check labs on 08/16/21Low Vit B12 -- start over-the-c ounter sublingual Vit B12 (between 2,500-5,00 0 mcg) 1 tab every Morning (under tongue for 5 min then swallow).- - A1c improved from 10.7 (05/16/21) --> 5.4 ((11/12/21) from labs ordered by Dr Dawit Krueger-- recheck labs within 2 days from 07/01/22 History of recurrent deep vein thrombosis [id number] 96683 Z86.718 d/y heterozygo us factor V Leiden mutation. Venous Doppler study on 05/28/2015 showed chronic DVT in the right femoral vein and right gastrocnem ius vein 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.Pt is following hematologi st Dr Filipe Chang Chronic ly mphoid leukemia, disease 21480202 C91.10 -- following w/ Oncologist dr Dawit Krueger Chronic mi graine without aura [id number] 89712 G43.709 -- issued Aimovig by Dr Lashanda edgar but pt could not start on it due to cost-- Topamax worked but pt has allergic reaction w/ facial swelling-- Managed by neurologis t Dr Lashanda edgar-- issued Qulipta but pt had not started on it has he had not had migraines lately Dysuria 65850697 R30.9 (started on 05/07/21) -- burning in the in beginning of micturitio n-- resolved since on diabetic med Hyperlipid emia screening 397191064 Z13.220 -- controlled Hepatitis C screening 41 6004158 Z11.59 -- tested negative for Hepatitis C on 05/16/21 Active or passive immunization 265096748 Z23 -- pt does not want Flu shot HIV screening 419427764 Z11.4 Screening for malignant neoplasm of colon 110783603 Z12.11 -- pt reported that he had a normal screening colonoscop y when he was 52 y/o (his GI told him that his colonoscop y was 'spectacul octaviano good'). Screening for malignant neoplasm of prostate 915232463 Z12.5 -- PSA level of 1.1 (05/16/21) Essential hypertension 74329922 I10 -- check lab(s) on 10/02/21 (2 weeks after starting on Telmisarta n) [id number] Julissa Alan MD [facility] [email or web address] [address] [place] [address] 10/30/2022 14:38:54 10/30/2022 17:22:08 Adult health examination 604556924 Z00.00 Essential hypertension 84857424 I10 -- recheck labs within 2 days from 10/30/22 Type 2 wilmer betes mellitus without complication 460094058 E11.9 -- check labs on 08/16/21Low Vit B12 -- start over-the-c ounter sublingual Vit B12 (between 2,500-5,00 0 mcg) 1 tab every Morning (under tongue for 5 min then swallow).- - A1c improved from 10.7 (05/16/21) --> 5.4 ((11/12/21) from labs ordered by Dr Dawit Krueger-- recheck labs within 2 days from 10/30/22 History of recurrent deep vein thrombosis 2615458241 82753 Z86.718 d/y heterozygo us factor V Leiden mutation. Venous Doppler study on 05/28/2015 showed chronic DVT in the right femoral vein and right gastrocnem ius vein 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.Pt is following hematologi st Dr Filipe Chang Chronic ly mphoid leukemia, disease 25285041 C91.10 -- following w/ Oncologist dr Dawit Krueger Chronic mi graine without aura 4710211056 69981 G43.709 -- issued Aimovig by Dr Lashanda edgar but pt could not start on it due to cost-- Topamax worked but pt has allergic reaction w/ facial swelling-- Managed by neurologis t Dr Lashanda edgar-- issued Qulipta but pt had not started on it has he had not had migraines lately Pain of ri ght shoulder joint 8640932017 5481622 M25.511 Dysuria 19843334 R30.9 (started on 05/07/21) -- burning in the in beginning of micturitio n-- resolved since on diabetic med Hyperlipid emia screening 893676530 Z13.220 -- controlled -- recheck labs within 2 days from 10/30/22 Hepatitis C screening 41 7733308 Z11.59 -- tested negative for Hepatitis C on 05/16/21 HIV screening 977939818 Z11.4 -- tested negative for HIV on 07/08/22 Active or passive immunization 642088194 Z23 -- pt does not want Flu shot Screening for malignant neoplasm of colon 429519054 Z12.11 -- pt reported that he had a normal screening colonoscop y when he was 52 y/o (his GI told him that his colonoscop y was 'spectacul octaviano good'). Screening for malignant neoplasm of prostate 365013658 Z12.5 -- PSA level of 1.1 (05/16/21) --> 0.5 (07/08/22) Solitary n odule of lung 779554594 R91.1 (8 mm at Rt apex) [id number] Julissa Alan MD [facility] [address] [place] [address] 03/04/2023 15:26:58 03/04/2023 17:14:53 Solitary nodule of lung 318435219 R91.1 -- Pulmonary Nodule 8 mm (Rt lung apex) -- radiologis t recommends chest CT 6-12 months from 10/17/22; -- I will recommend having the chest CT done around 04/21/23 Type 2 wilmer betes mellitus without complication 576508524 E11.9 Low Vit B12 -- start over-the-c ounter sublingual Vit B12 (between 2,500-5,00 0 mcg) 1 tab every Morning (under tongue for 5 min then swallow).- - A1c improved from 10.7 (05/16/21) --> 5.4 ((11/12/21) from labs ordered by Dr Dawit Krueger-- recheck lab(s) on 04/23/23 Essential hypertension 98459495 I10 -- recheck lab(s) on 04/23/23 History of recurrent deep vein thrombosis 9933820257 82408 Z86.718 d/y heterozygo us factor V Leiden mutation. Venous Doppler study on 05/28/2015 showed chronic DVT in the right femoral vein and right gastrocnem ius vein -- inform pt to avoid any otc pain meds: like Ibuprofen (Motrin /Advil), & Naproxen (Aleve), Meloxicam, Celecoxib or other pain meds by other physician/ health providers. 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.Pt is following hematologi st Dr Filipe Chang Chronic ly mphoid leukemia, disease 61217084 C91.10 -- following w/ Oncologist dr Dawit Krueger Chronic mi graine without aura 2424658139 58700 G43.709 -- issued Aimovig by Dr Lashanda edgar but pt could not start on it due to cost-- Topamax worked but pt has allergic reaction w/ facial swelling-- Managed by neurologis t Dr Lashanda edgar-- issued Qulipta but pt had not started on it has he had not had migraines lately Pain of ri ght shoulder joint 2731859646 4727301 M25.511 Dysuria 67277219 R30.9 (started on 05/07/21) -- burning in the in beginning of micturitio n-- resolved since on diabetic med Hyperlipid emia screening 551649699 Z13.220 -- controlled -- recheck lab(s) on 04/23/23 Hepatitis C screening 41 5079399 Z11.59 -- tested negative for Hepatitis C on 05/16/21 HIV screening 637367478 Z11.4 -- tested negative for HIV on 07/08/22 Active or passive immunization 333694575 Z23 -- pt does not want Flu shot Screening for malignant neoplasm of colon 138160812 Z12.11 -- pt reported that he had a normal screening colonoscop y when he was 52 y/o (his GI told him that his colonoscop y was 'spectacul octaviano good'). Screening for malignant neoplasm of prostate 370634685 Z12.5 -- PSA level of 1.1 (05/16/21) --> 0.5 (07/08/22) [id number] Julissa Alan MD [facility] [address] [place] [address] 08/04/2023 08:15:15 08/04/2023 09:13:53 Upper respiratory infection 86033941 J06.9 Solitary n odule of lung 496361868 R91.1 -- Pulmonary Nodule 8 mm (Rt lung apex) on CT from 10/17/22;-- repeat CT on 05/27/23 did not show the lung nodule Type 2 wilmer betes mellitus without complication 878559471 E11.9 Low Vit B12 -- start over-the-c ounter sublingual Vit B12 (between 2,500-5,00 0 mcg) 1 tab every Morning (under tongue for 5 min then swallow).- - A1c improved from 10.7 (05/16/21) --> 5.4 ((11/12/21) from labs ordered by Dr Dawit Krueger-- recheck lab(s) on 04/23/23 Essential hypertension 37464914 I10 -- recheck lab(s) on 04/23/23 History of recurrent deep vein thrombosis 9783793547 88729 Z86.718 d/y heterozygo us factor V Leiden mutation. Venous Doppler study on 05/28/2015 showed chronic DVT in the right femoral vein and right gastrocnem ius vein -- inform pt to avoid any otc pain meds: like Ibuprofen (Motrin /Advil), & Naproxen (Aleve), Meloxicam, Celecoxib or other pain meds by other physician/ health providers. He is maintained on [facility] Xarelto 20 mg daily.Pt is following hematologi st Dr Filipe Chang Chronic ly mphoid leukemia, disease 07157109 C91.10 -- following w/ Oncologist dr Dawit Krueger Chronic mi graine without aura [id number] 16311 G43.709 -- issued Aimovig by Dr Lashanda edgar but pt could not start on it due to cost-- Topamax worked but pt has allergic reaction w/ facial swelling-- Managed by neurologis t Dr Govindaraj an-- issued Qulipta but pt had not started on it has he had not had migraines lately Hepatitis C screening 41 1753504 Z11.59 -- tested negative for Hepatitis C on 05/16/21 HIV screening 764010711 Z11.4 -- tested negative for HIV on 07/08/22 Active or passive immunization 651861720 Z23 -- pt does not want Flu shot Screening for malignant neoplasm of colon 173018522 Z12.11 -- pt reported that he had a normal screening colonoscop y when he was 52 y/o (his GI told him that his colonoscop y was 'spectacul octaviano good'). Screening for malignant neoplasm of prostate 618786778 Z12.5 -- PSA level of 1.1 (05/16/21) --> 0.5 (07/08/22) Long-term drug therapy 301496846 Z79.899 Health Concerns Section Related Observation LastModified by Organization Detai ls LastModified Time None Recorded Concern Status LastModified by Organization Details LastModified Time None Recorded Advance Directives Directive N: Payers Encounter Date Sequence Insurance Name Policy Number Policy Parry Covered Member ID Parry Member ID Guarantor Name 12/17/2021 1 [place] [id number] Jose H Herbert [id number] AB Jose [place] 07/01/2022 1 [place] [id number] Jose H Brooklyn [id number] AB Jose Herbert 10/30/2022 1 [place] [id number] Jose H Herbert [id number] AB Jose Herbert 03/04/2023 1 [place] [id number] Jose H Brooklyn [id number] AB Jose [place] 08/04/2023 1 [place] [id number] Jose Brooklyn [id number] Jose Brooklyn Notes Date Note Type Note Provider Name and Address Organization Details Recorded Time 12/17/2021 text/html Pt comes in for DM, CLL, Migraine, h/o DVT (without sx), and weight.Pt feels well and has no c/o. Pt has no new sx or any increasing sx.Pt also has pain in left shoulder w/ elevation at extreme 90 degrees. Patient denies any jaw or neck discomfort, left arm pain/left arm discomfort, chest discomfort/pain, diaphoresis, breathing symptoms/chest tightness, indigestion sx, n/v, any angina equivalent symptoms, etc. Julissa Alan MD [address], [place], [address], [facility] 12/17/2021 18:04:37 07/01/2022 text/html Pt comes in for HTN, dm, CLL, migraines, h/o DVT and lipid. Pt feels well and has no c/o. Pt has no new sx and no increasing sx. Patient denies any jaw or neck discomfort, left arm pain/left arm discomfort, chest discomfort/pain, diaphoresis, breathing symptoms/chest tightness, indigestion sx, n/v, any angina equivalent symptoms, etc. Julissa Alan MD [address], [place], [address], [facility] 07/01/2022 19:41:20 10/30/2022 text/html Pt comes in for Annual PE. Pt feels well and has no c/o. Pt has no new sx and no increasing sx. Patient denies any jaw or neck discomfort, left arm pain/left arm discomfort, chest discomfort/pain, diaphoresis, breathing symptoms/chest tightness, indigestion sx, n/v, any angina equivalent symptoms, etc. Julissa Alan MD [address] [facility] [address], [place], [address], [facility] 10/30/2022 17:12:53 03/04/2023 text/html Pt comes in for f/u of lung nodule, DM, HTN, CLL, Migraine, and weight. Pt feels well and has no c/o. Pt has no new sx and no increasing sx. Patient denies any jaw or neck discomfort, left arm pain/left arm discomfort, chest discomfort/pain, diaphoresis, breathing symptoms/chest tightness, indigestion sx, n/v, any angina equivalent symptoms, etc. Julissa Alan MD [address], [place], [address], [facility] 03/04/2023 17:16:25 08/04/2023 text/html Pt comes in for URI. He has 3 days of Augmentin and does not feel as bad.Pt is also here for f/u of DM, HTN, DVT (not new sx), and CLL. Pt feels better and has no increasing sx. Patient denies any jaw or neck discomfort, left arm pain/left arm discomfort, chest discomfort/pain, diaphoresis, breathing symptoms/chest tightness, indigestion sx, n/v, any angina equivalent symptoms, etc. Julissa Alan MD [address] [facility] [address], [place], [address], [facility] 08/04/2023 09:15:06
--- OUTSIDE RECORDS SUMMARY | 2024-03-19 00:06 | XMS_ITS | Referral Summary ---
Author Organization [facility] Address [address] [place] [address] Care Team Providers Care Railway Switch Operator Name Role Phone No, Physician Primary Care Provider [phone] Encounters Date Type Department Care Team Description 03/10/2024 Orders Only [facility] Scanning, Provider 03/10/2024 Telephone [facility] Hematology [address] [place] [phone] Anel Guo RN 03/05/2024 Orders Only [facility] Hematology [address] [place] [phone] Filipe Chang MD 01/28/2024 1:00 PM FRUIT HARVEST WORKER Lab [facility] - Lab Collection [address] [place] [id number] History of recurrent deep vein thrombosis (DVT) 01/28/2024 12:45 PM FRUIT HARVEST WORKER Lab [facility] Oncology Lab [address] [place] [phone] History of recurrent deep vein thrombosis (DVT) 01/28/2024 1:45 PM FRUIT HARVEST WORKER Office Visit [facility] Hematology [address] [place] [phone] Filipe Chang MD Current use of manager intermediate anticoagulation (Primary Dx); History of recurrent deep vein thrombosis (DVT); CLL (chronic lymphoid leukemia) in relapse (HCC) from Last 3 Months Allergies Active Allergy Reactions Criticality Noted Date Comments Topiramate Hives Medium 08/08/2010 Hives Medications metFORMIN XR (GLUCOPHAGE XR) 500 mg 24 hr tabletIndicati ons:Chronic lymphoid leukemia in remission (HCC) 2 (two) times a day 2 Active rosuvastatin (CRESTOR) 5 mg tabletIndicati ons:Chronic lymphoid leukemia in remission (HCC) 2 Active telmisartan (MICARDIS) 40 mg tabletIndicati ons:Chronic lymphoid leukemia in remission (HCC) 2 Active dabigatran (PRADAXA) 150 mg capsule Take 1 capsule (150 mg total) by mouth 2 (two) times a day 180 capsule 1 5 Active rivaroxaban (Xarelto) 20 mg tabletIndicati ons:CLL (chronic lymphoid leukemia) in relapse (HCC) Take 1 tablet (20 mg total) by mouth daily 90 tablet 3 4 03/05/19 25 Discontinued Active Problems Problem Noted Date Diagnosed Date History of recurrent deep vein thrombosis (DVT) 12/26/2020 Venous stasis dermatitis of lower extremity 10/2020 Current use of [facility] anticoagulation 021 Heterozygous factor V Leiden mutation 12/26/2020 Chronic migraine without aur a without status migrainosus, not intractable 12/24/2017 Chronic lymphoid leukemia in remission 2 Pulmonary embolism 08/08/2010 Resolved Problems Problem Noted Date Diagnosed Date Resolved Date Migraine 12/26/2020 12/26/2020 Immunizations Name Administration Dates Next Due Tdap 11/09/2014 Social History Tobacco Use Types Packs/Day Years Used Date Smoking Tobacco: Former Cigarettes 1 - 1981 Smokeless Tobacco: Never Tobacco Cessation:Counseling Given: Not Answered Comments:SOCIAL only Alcohol Use Standard Drinks/Week Comments No 0 (1 standard drink = 0.6 oz pur e alcohol) Sex and Gender Information Value Date Recorded Sex Assigned at Not on file Legal Sex Male 4:08 AM FRUIT HARVEST WORKER Gender Identity Not on file Sexual Orientation Not on file 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 Not on file Not on file Not on fi le Last Filed Vital Signs Vital Sign Reading Time Taken Comments Blood Pressure 134/77 01/28/2024 1:19 PM FRUIT HARVEST WORKER Pulse 56 01/28/2024 1:19 PM FRUIT HARVEST WORKER Temperature 36.8 ??C (98.2 ??F) 01/28/2024 1:19 PM CS T Respiratory Rate 18 01/28/2024 1:19 PM FRUIT HARVEST WORKER Oxygen Saturation 97% 01/28/2024 1:19 PM FRUIT HARVEST WORKER Inhaled Oxygen Concentration - - Weight 130.2 kg (287 lb) 01/28/2024 1:19 PM FRUIT HARVEST WORKER Height 177 cm (5' 9.69 ) 11/12/2021 1:45 PM CDT Body Mass Index 41.55 11/12/2021 1:45 PM CDT Plan of Treatment Not on file Procedures Procedure Name Priority Date/Time Associated Diagnosis Comments EGFR Routine 01/28/2024 1:03 PM FRUIT HARVEST WORKER History of recurrent deep vein thrombosis (DVT) MANUAL DIFFERENTIAL Routine 01/28/2024 1 :03 PM FRUIT HARVEST WORKER History of recurrent deep vein thrombosis (DVT) CBC WITH AUTO DIFFERENTIAL Routine 01/28/2024 1:03 PM FRUIT HARVEST WORKER History of recurrent deep vein thrombosis (DVT) COMPREHENSIVE METABOLIC PANEL Routine 01/28/2024 1:03 PM FRUIT HARVEST WORKER History of recurrent deep vein thrombosis (DVT) from Last 3 Months Results * eGFR (01/28/2024 1:03 PM FRUIT HARVEST WORKER) eGFR 83 >=60 mL/min/1. 73 m2 Comment: Interpretive Data Reference Interval Normal ?>/= 90 mL/min/1.73m2 Mildly decreased* ? 60 - 89 mL/min/1.73m2 Mildly to moderately decreased ?45 - 59 mL/min/1.73m2 Moderately to severely decreased ??30 - 44 mL/min/1.73m2 Severely decreased ?15 - 29 mL/min/1.73m2 Kidney Failure ?< 15 ??mL/min/1.73m2 *Relative to young adult level Estimated glomerular filtration rate is determined by the 2020 CKD-EPI equation recommended by the National Kidney [employer] (A Unifying Approach to GFR Estimation: Recommendations of the NKF-ASK Task Force on Reassessing the Inclusion of Race in Diagnosing Kidney Disease, JASN 2020). The CKD-EPI equation should not be used for patients with unstable renal function and has not been validated in children and those over 70. Current interpretive data was last reviewed 2020. Blood 01/28/2024 1:03 PM FRUIT HARVEST WORKER 01/28/2024 1:09 PM FRUIT HARVEST WORKER us Filipe Chang MD LAB BLOOD ORDERABLES Final R esult BILL GOOD [facility] Department [place] [address] * (ABNORMAL) CBC with auto differential (01/28/2024 1:03 PM FRUIT HARVEST WORKER) WBC 36.4(H) 3.8 - 9.9 K/cumm Comment:Testing performed by : [facility], [address] [place] [address] Hgb 14.8 13.0 - 17.5 g/dL BILL GOOD Comment:Testing performed by : [facility], [address] [place] [address] Hct 43.6 38.9 - 50.3 % BILL GOOD Comment:Testing performed by : [facility], [address] [place] [address] Plt 100(L) 150 - 400 K/cumm BILL GOOD Comment:Testing performed by : [facility], [address] [place] [address] MPV 7.1 6.8 - 10.4 fL BILL GOOD Comment:Testing performed by : [facility], [address] [place] [address] RBC 4.58 4.30 - 5.80 M/cumm BILL GOOD Comment:Testing performed by : [facility], [address] [place] [address] MCV 95.3 81.3 - 96.4 fL BILL GOOD Comment:Testing performed by : [facility], [address] [place] [address] MCH 32.3 27.1 - 33.3 pg BILL GOOD Comment:Testing performed by : [facility], [address] [place] [address] MCHC 33.9 32.3 - 35.7 g/dL BILL GOOD Comment:Testing performed by : [facility], [address] [place] [address] RDW CV 13.5 11.1 - 14.9 % BILL GOOD Comment:Testing performed by : [facility], [address] [place], [place] [phone] NRBC abs 0.00 0.00 - 0.01 K/cumm BILL GOOD Comment:Testing performed by : [facility], [address] [place] [address] Blood 01/28/2024 1:03 PM FRUIT HARVEST WORKER 01/28/2024 1:08 PM FRUIT HARVEST WORKER Filipe Chang MD LAB BLOOD ORDERABLES Edited Result - Final BILL [facility] Department [place] [address] * (ABNORMAL) Manual Differential (01/28/2024 1:03 PM FRUIT HARVEST WORKER) Cells Counted 200 Comment:Testing performed by : [facility], [address] [place] [address] Neutrophil abs 7.3(H) 1.5 - 6.5 K/cumm BILL GOOD Comment:Testing performed by : [facility], [address] [place] [address] Lymphocyte abs 25.1(H) 0.8 - 3.3 K/cumm BILL GOOD Comment:Testing performed by : [facility], [address] [place] [phone] Monocyte abs 0.7 0.2 - 0.8 K/cumm [facility] Comment:Testing performed by : [facility], [address] [place], [place] [phone] Eosinophil abs 0.7(H) 0.0 - 0.5 K/cumm [facility] Comment:Testing performed by : [facility], [address] [place] [address] Basophil abs 0.0 0.0 - 0.1 K/cumm [facility] Comment:Testing performed by : [facility], [address] [place], [place] [id number] Neutrophil pct 20.0 % [facility] Comment: Interpretive Data Percent cell count reference ranges are not reported, since discordance with absolute values may lead to misinterpretation of CBC data. Current Interpretive Data was last revised on 2017. Testing performed by: [facility], [address] [place], [place] [id number] Lymphocyte pct 69.0 % [facility] Comment: Interpretive Data Percent cell count reference ranges are not reported, since discordance with absolute values may lead to misinterpretation of CBC data. Current Interpretive Data was last revised on 2017. Testing performed by: [facility], [address] [place] [phone] Monocyte pct 2.0 % [facility] Comment: Interpretive Data Percent cell count reference ranges are not reported, since discordance with absolute values may lead to misinterpretation of CBC data. Current Interpretive Data was last revised on 2017. Testing performed by: [facility], [address] [place] [phone] Eosinophil pct 2.0 % [facility] Comment: Interpretive Data Percent cell count reference ranges are not reported, since discordance with absolute values may lead to misinterpretation of CBC data. Current Interpretive Data was last revised on 2017. Testing performed by: [facility], [address] [place] [phone] Basophil pct 0.0 % [facility] Comment: Interpretive Data Percent cell count reference ranges are not reported, since discordance with absolute values may lead to misinterpretation of CBC data. Current Interpretive Data was last revised on 2017. Testing performed by: [facility], [address] [place], [place] [phone] Variant lymph pct 9.0 % [facility] Comment:Testing performed by : [facility], [address] [place] [address] Smudge cells, qual Present(A) BILL [facility] Comment:Testing performed by : [facility], [address] [place] [address] RBC morphology Normal [facility] Comment:Testing performed by : [facility] Lab, [address] [place] [address] Platelet estimate Decreased( A) [facility] Comment:Testing performed by : [facility] Lab, [address] [place] [address] Blood 01/28/2024 1:03 PM FRUIT HARVEST WORKER 01/28/2024 1:08 PM FRUIT HARVEST WORKER us Filipe Chang MD LAB BLOOD ORDERABLES Final R esult [facility] Department [place] [address] * (ABNORMAL) Comprehensive metabolic panel (01/28/2024 1:03 PM FRUIT HARVEST WORKER) Sodium 141 135 - 145 mmol/L Potassium, pl 4.6 3.3 - 4.9 mmol/L [facility] Chloride 107 97 - 110 mmol/L [facility] CO2 31 22 - 32 mmol/L [facility] Anion gap 3 2 - 15 mmol/L [facility] BUN 14 6 - 25 mg/dL [facility] Creatinine 1.03 0.80 - 1.30 mg/dL [facility] Glucose 110 70 - 199 mg/dL [facility] Comment: Interpretive Data Fasting glucose >/= 126 mg/dl is diagnostic for diabetes. ?? Fasting is defined as no caloric intake for at least 8 hours. Fasting glucose between 100 mg/dl to 125 mg/dl is diagnostic of prediabetes. In a patient with classic symptoms of hyperglycemia or hyperglycemic crisis, a random glucose >/= 200 mg/dl is diagnostic for diabetes. In the absence of unequivocal hyperglycemia, results should be confirmed by repeat testing. The classification and Diagnosis of Diabetes Diabetes Care 202; 46: S19-S40. Current interpretive data was last revised 2022. Calcium 9.3 8.5 - 10.3 mg/dL [facility] Bilirubin, total 2.6(H) 0.1 - 1.2 mg/dL [facility] Protein, pl 7.5 6.5 - 8.5 g/dL [facility] Albumin 4.5 3.5 - 5.0 g/dL [facility] Alk phos 69 40 - 130 Units/L [facility] ALT 42 7 - 55 Units/L [facility] AST 43 10 - 50 Units/L [facility] Blood 01/28/2024 1:03 PM FRUIT HARVEST WORKER 01/28/2024 1:09 PM FRUIT HARVEST WORKER us Filipe Chang MD LAB BLOOD ORDERABLES Final R esult BILL [facility] Department [place] [address] from Last 3 Months Insurance In[place] Care Teams Railway Switch Operator Relationship Specialty Start Date End Date No, Physician PCP - General 09/12/21
--- OUTSIDE RECORDS SUMMARY | 2024-03-19 00:06 | XMS_ITS | Clinical Summary ---
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 021 Heterozygous factor V Leiden mutation 12/26/2020 Chronic migraine without aur a without status migrainosus, not intractable 12/24/2017 Chronic lymphoid leukemia in remission 2 Pulmonary embolism 08/08/2010 Resolved Problems Problem Noted Date Diagnosed Date Resolved Date Migraine 12/26/2020 12/26/2020 Encounters Date Type Department Care Team Description 03/10/2024 Orders Only [facility] HEMATOLOGY Scanning, Provider 03/10/2024 Telephone [facility] Hematology [address] [place] [address] 6 [place] [address] Anel Guo RN 03/05/2024 Orders Only [facility] Hematology [address] [place] [address] 6 [place] [address] Filipe Chang MD 01/28/2024 1:45 PM GUM ROLLING MACHINE OPERATOR Office Visit [facility] Hematology [address] [place] [phone] Filipe Chang MD Current use of longterm anticoagulation (Primary Dx); History of recurrent deep vein thrombosis (DVT); CLL (chronic lymphoid leukemia) in relapse (HCC) 01/28/2024 1:00 PM GUM ROLLING MACHINE OPERATOR Lab [facility] - Lab Collection [address] [place] [address] 6 [place] [address] History of recurrent deep vein thrombosis (DVT) 01/28/2024 12:45 PM GUM ROLLING MACHINE OPERATOR Lab [facility] Oncology Lab [address] [place] [phone] History of recurrent deep vein thrombosis (DVT) from Last 3 Months Immunizations Name Administration Dates Next Due Tdap 11/09/2014 Surgical History Surgery Date Site/Laterality Comments RHINOPLASTY Medical History Medical History Date Comments DVT (deep vein thrombosis) in Pulmonary embolism (HCC) Factor V Leiden (HCC) Family History Medical History Relation Name Comments Cancer Father Family history of malignant neoplasm - (Added by TW Conv) Cancer Mother Family history of malignant neoplasm - (Added by TW Conv) Migraines Mother Cancer Other Family history of malignant neoplasm - (Added by TW Conv) Relation Name Status Comments Father Mother Other Social History Tobacco Use Types Packs/Day Years Used Date Smoking Tobacco: Former Cigarettes 1 1981 Smokeless Tobacco: Never Tobacco Cessation:Counseling Given: Not Answered Comments:SOCIAL only Alcohol Use Standard Drinks/Week Comments No 0 (1 standard drink = 0.6 oz pur e alcohol) Sex and Gender Information Value Date Recorded Sex Assigned at Not on file Legal Sex Male 4:08 AM GUM ROLLING MACHINE OPERATOR Gender Identity Not on file Sexual Orientation Not on file 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 Not on file Not on file Not on fi le Obstetrics History Last Filed Vital Signs Vital Sign Reading Time Taken Comments Blood Pressure 134/77 01/28/2024 1:19 PM GUM ROLLING MACHINE OPERATOR Pulse 56 01/28/2024 1:19 PM GUM ROLLING MACHINE OPERATOR Temperature 36.8 ??C (98.2 ??F) 01/28/2024 1:19 PM CS T Respiratory Rate 18 01/28/2024 1:19 PM GUM ROLLING MACHINE OPERATOR Oxygen Saturation 97% 01/28/2024 1:19 PM GUM ROLLING MACHINE OPERATOR Inhaled Oxygen Concentration - - Weight 130.2 kg (287 lb) 01/28/2024 1:19 PM GUM ROLLING MACHINE OPERATOR Height 177 cm (5' 9.69 ) 11/12/2021 1:45 PM CDT Body Mass Index 41.55 11/12/2021 1:45 PM CDT Plan of Treatment Health Maintenance Due Date Last Done Comments Colon Cancer Screening-Colonoscopy 1962 Depression Screening 1962 Hepatitis C Screening 1962 Prostate Cancer Screening-PSA 1962 Pneumococcal vaccine <65 (1 of 2 - PCV) 1968 Hepatitis B Screening 1980 Regular Well Visit/Exam 18-64 1980 Zoster Vaccine (1 of 2) 1981 Influenza Vaccine (#1) 2023 DTaP/Tdap/Td Vaccine (2 - Td or Tdap) 11/09/2024 Procedures Procedure Name Priority Date/Time Associated Diagnosis Comments EGFR Routine 01/28/2024 1:03 PM GUM ROLLING MACHINE OPERATOR History of recurrent deep vein thrombosis (DVT) MANUAL DIFFERENTIAL Routine 01/28/2024 1 :03 PM GUM ROLLING MACHINE OPERATOR History of recurrent deep vein thrombosis (DVT) CBC WITH AUTO DIFFERENTIAL Routine 01/28/2024 1:03 PM GUM ROLLING MACHINE OPERATOR History of recurrent deep vein thrombosis (DVT) COMPREHENSIVE METABOLIC PANEL Routine 01/28/2024 1:03 PM GUM ROLLING MACHINE OPERATOR History of recurrent deep vein thrombosis (DVT) from Last 3 Months Results * eGFR (01/28/2024 1:03 PM GUM ROLLING MACHINE OPERATOR) eGFR 83 >=60 mL/min/1. 73 m2 Comment: [...] last reviewed 2020. Blood 01/28/2024 1:03 PM GUM ROLLING MACHINE OPERATOR 01/28/2024 1:09 PM GUM ROLLING MACHINE OPERATOR us Filipe Chang MD LAB BLOOD ORDERABLES Final R esult [facility] [place] [address] * (ABNORMAL) CBC with auto differential (01/28/2024 1:03 PM GUM ROLLING MACHINE OPERATOR) WBC 36.4(H) 3.8 - 9.9 K/cumm Comment:Testing performed by : [facility], [address] [place] [phone] Hgb 14.8 13.0 - 17.5 g/dL [facility] Comment:Testing performed by : [facility], [address] [place] [address] Hct 43.6 38.9 - 50.3 % [facility] Comment:Testing performed by : [facility], [address] [place] [address] Plt 100(L) 150 - 400 K/cumm [facility] Comment:Testing performed by : [facility], [address] [place] [address] MPV 7.1 6.8 - 10.4 fL [facility] Comment:Testing performed by : [facility], [address] [place] [address] RBC 4.58 4.30 - 5.80 M/cumm [facility] Comment:Testing performed by : [facility], [address] [place] [address] MCV 95.3 81.3 - 96.4 fL [facility] Comment:Testing performed by : [facility], [address] [place] [address] MCH 32.3 27.1 - 33.3 pg [facility] Comment:Testing performed by : [facility], [address] [place] [address] MCHC 33.9 32.3 - 35.7 g/dL [facility] Comment:Testing performed by : [facility], [address] [place] [address] RDW CV 13.5 11.1 - 14.9 % [facility] Comment:Testing performed by : [facility], [address] [place] [address] NRBC abs 0.00 0.00 - 0.01 K/cumm [facility] Comment:Testing performed by : [facility], [address] [place] [address] Blood 01/28/2024 1:03 PM GUM ROLLING MACHINE OPERATOR 01/28/2024 1:08 PM GUM ROLLING MACHINE OPERATOR us Filipe Chang MD LAB BLOOD ORDERABLES Edited Result - Final BILL GOOD [facility] [place] [address] * (ABNORMAL) Manual Differential (01/28/2024 1:03 PM GUM ROLLING MACHINE OPERATOR) Cells Counted 200 Comment:Testing performed by : [facility], [address] [place] [phone] Neutrophil abs 7.3(H) 1.5 - 6.5 K/cumm [facility] Comment:Testing performed by : [facility], [address] [place] [phone] Lymphocyte abs 25.1(H) 0.8 - 3.3 K/cumm [facility] Comment:Testing performed by : [facility], [address] [place] [phone] Monocyte abs 0.7 0.2 - 0.8 K/cumm [facility] Comment:Testing performed by : [facility], [address] [place] [phone] Eosinophil abs 0.7(H) 0.0 - 0.5 K/cumm [facility] Comment:Testing performed by : [facility], [address] [place] [phone] Basophil abs 0.0 0.0 - 0.1 K/cumm [facility] Comment:Testing performed by : [facility], [address] [place] [phone] Neutrophil pct 20.0 % [facility] Comment: Interpretive Data Percent cell count reference ranges are not reported, since discordance with absolute values may lead to misinterpretation of CBC data. Current Interpretive Data was last revised on 2017. Testing performed by: [facility], [address] [place] [phone] Lymphocyte pct 69.0 % [facility] Comment: Interpretive Data Percent cell count reference ranges are not reported, since discordance with absolute values may lead to misinterpretation of CBC data. Current Interpretive Data was last revised on 2017. Testing performed by: [facility], [address] [place] [phone] Monocyte pct 2.0 % [facility] Comment: Interpretive Data Percent cell count reference ranges are not reported, since discordance with absolute values may lead to misinterpretation of CBC data. Current Interpretive Data was last revised on 2017. Testing performed by: [facility], [address] [place], [place] [id number] Eosinophil pct 2.0 % [facility] Comment: Interpretive Data Percent cell count reference ranges are not reported, since discordance with absolute values may lead to misinterpretation of CBC data. Current Interpretive Data was last revised on 2017. Testing performed by: [facility], [address] [place] [address] Basophil pct 0.0 % [facility] Comment: Interpretive Data Percent cell count reference ranges are not reported, since discordance with absolute values may lead to misinterpretation of CBC data. Current Interpretive Data was last revised on 2017. Testing performed by: [facility], [address] [place] [phone] Variant lymph pct 9.0 % [facility] Comment:Testing performed by : [facility], [address] [place] [phone] Smudge cells, qual Present(A) [facility] Comment:Testing performed by : [facility], [address] [place] [phone] RBC morphology Normal [facility] Comment:Testing performed by : [facility], [address] [place] [phone] Platelet estimate Decreased( A) [facility] Comment:Testing performed by : [facility], [address] [place] [phone] Blood 01/28/2024 1:03 PM GUM ROLLING MACHINE OPERATOR 01/28/2024 1:08 PM GUM ROLLING MACHINE OPERATOR us Filipe Chang MD LAB BLOOD ORDERABLES Final R esult [facility] [place] [address] * (ABNORMAL) Comprehensive metabolic panel (01/28/2024 1:03 PM GUM ROLLING MACHINE OPERATOR) Sodium 141 135 - 145 mmol/L Potassium, pl 4.6 3.3 - 4.9 mmol/L [facility] Chloride 107 97 - 110 mmol/L [facility] CO2 31 22 - 32 mmol/L [facility] Anion gap 3 2 - 15 mmol/L [facility] BUN 14 6 - 25 mg/dL [facility] Creatinine 1.03 0.80 - 1.30 mg/dL [facility] Glucose 110 70 - 199 mg/dL [facility] Comment: Interpretive Data Fasting glucose [...] classification and Diagnosis of Diabetes Diabetes Care 2021; 46: S19-S40. Current interpretive data was last revised 2022. Calcium 9.3 8.5 - 10.3 mg/dL [facility] Bilirubin, total 2.6(H) 0.1 - 1.2 mg/dL [facility] Protein, pl 7.5 6.5 - 8.5 g/dL [facility] Albumin 4.5 3.5 - 5.0 g/dL [facility] Alk phos 69 40 - 130 Units/L [facility] ALT 42 7 - 55 Units/L [facility] AST 43 10 - 50 Units/L [facility] Blood 01/28/2024 1:03 PM GUM ROLLING MACHINE OPERATOR 01/28/2024 1:09 PM GUM ROLLING MACHINE OPERATOR us Filipe hCang MD LAB BLOOD ORDERABLES Final R esult [facility] [place] [address] from Last 3 Months Insurance [place] Care Teams Bell Spinner Relationship Specialty Start Date End Date No, Physician PCP - General 09/12/21
--- OUTSIDE RECORDS SUMMARY | 2024-03-19 00:06 | XMS_ITS | Encounter Summary ---
Author Organization [facility] Address [address] [place] [address] Phone Care Team Providers Care E Learning Coordinator Name Role Phone No, Physician Primary Care Provider [phone] No, Physician Primary Care Provider [phone] Encounter Details Date Type Department Care Team (Late st Contact Info) Description 11/15/2020 Telephone [facility] Bone Marrow Transplant [address] 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
[2024-03-19 12:10] VITALS: BP 164/76; PULSE 52; RESP 20; TEMP 35.8; O2SAT 99; BMI 36.3
[2024-03-19] MEDS: LACTATED RINGERS 1,000 ML 150 ML IV CONT (12:20)
--- NOTE | 2024-03-19 12:42 | WPDANESEPPF ---
Anes - Initial Pre Proc Eval Procedure: Operation Date: 03/19/24 13:30 Proposed Procedures p Screening Colonoscopy - Xavier Buck MD Date/Time: 03/19/24 12:42 Surgeon: Xavier Buck MD Pre Op Diagnosis: Neoplasm screening Patient Data Age: 63 Gender: M Height: 1.8 m Weight: 118 kg Last Vital Signs Temp 35.8 C L 03/19/24 12:10 Pulse 52 L 03/19/24 12:10 Resp 20 03/19/24 12:10 BP 164/76 H 03/19/24 12:10 Pulse Ox 99 03/19/24 12:10 O2 Del Method Room Air 03/19/24 12:10 Allergies Allergy/AdvReac Type Severity Reaction Status Date / Time topiramate Allergy Unknown Hives, Verified 03/19/24 12:09 itching Home Medications ?Medication ?Instructions ?Recorded ?Confirmed ?Type metformin 500 mg tablet,extended 500 mg PO DAILY 09/29/22 03/09/24 History release 24 hr rivaroxaban 20 mg tablet (Xarelto) 20 mg PO DAILY 09/29/22 03/19/24 History rosuvastatin 5 mg tablet 5 mg PO DAILY 09/29/22 03/09/24 History telmisartan 40 mg tablet 40 mg PO DAILY 09/29/22 03/09/24 History fluticasone propionate 50 1 - 2 spray intranasal BID #16 mL 08/25/23 03/09/24 Rx mcg/actuation nasal spray,suspension (Flonase Allergy Relief) Patient hx anesthesia problems: none Family hx anesthesia problems: none Results Review: All pre-operative results and documents have been reviewed as part of the pre-operative evaluation. 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 Mixed hyperlipidemia Impacted cerumen of right ear Hx pulmonary embolism Hx of migraines Hx of deep venous thrombosis History of leukemia Gastroesophageal reflux disease without esophagitis DVT (deep venous thrombosis) Colon cancer screening BMI 40.0-44.9, adult Surgical History Surgical History History of bone marrow biopsy Social History Social History Social History: Caffeine- coffee Smoking status: Never smoker Alcohol intake: never Substance use: never Substance use type: does not use Lack of Transportation: No Lack of Food: Never True Current Housing: Decline to Answer Concerned About Future Housing: Decline to Answer Difficulty Paying Gas/Electric Bills: Decline to Answer Difficulty Paying for Meds: Decline to Answer Currently Unemployed: Decline to Answer Education: Trade/Vocational Certificate Difficulty w/ Childcare or Family Care: Decline to Answer Living arrangements: with family Spiritual care concerns: No Anes - Eval Final PreProcedure Day of Procedure 03/19/24 12:42 Patient weight: obese Heart: regular rate and rhythm Lungs: decreased breath sounds Airway: Mallampati scale class II Neurological: alert and oriented Last oral intake: >/= 8 hours ASA classification: III Emergent: no Anesthetic plan: proceed Anesthesia type and monitoring: general GIVS and standard monitoring Results Review: All pre-operative results and documents have been reviewed as part of the pre-operative evaluation. Informed Consent: The patient's anesthetic plan and its attendant risks and benefits were discussed with the patient/family/POA. Questions were solicited and answers provided to the satisfaction of the patient/family/POA.
--- NOTE | 2024-03-19 12:59 | P.HP_ITS ---
History of Present Illness History of Present Illness Consent: Risks, benefits, and alternatives have been discussed and questions answered. Patient agrees to proceed with procedure. Chief complaint: Neoplasm screening Narrative: Jose Godinez is a 63 year old male here for screening colonoscopy, last one 10 years ago Review of Systems Review of Systems: All systems reviewed & are unremarkable except as noted in HPI and below PMFSH Past Medical History Medical History (Updated 03/19/24 @ 13:01 by Xavier Buck MD) URI, acute Sore throat Prostate cancer screening PE (pulmonary thromboembolism) Otitis of left ear MCKAYLA on CPAP On longterm drug therapy Mixed hyperlipidemia Impacted cerumen of right ear Hx pulmonary embolism Hx of migraines Hx of deep venous thrombosis History of leukemia Gastroesophageal reflux disease without esophagitis DVT (deep venous thrombosis) Colon cancer screening BMI 40.0-44.9, adult Surgical History Surgical History History of bone marrow biopsy Social History Social History Social History: Caffeine- coffee Smoking status: Never smoker Alcohol intake: never Substance use: never Substance use type: does not use Lack of Transportation: No Lack of Food: Never True Current Housing: Decline to Answer Concerned About Future Housing: Decline to Answer Difficulty Paying Gas/Electric Bills: Decline to Answer Difficulty Paying for Meds: Decline to Answer Currently Unemployed: Decline to Answer Education: Trade/Vocational Certificate Difficulty w/ Childcare or Family Care: Decline to Answer Living arrangements: with family Spiritual care concerns: No Meds Home Medications and Allergies Home Medications ?Medication ?Instructions ?Recorded ?Confirmed ?Type metformin 500 mg tablet,extended 500 mg PO DAILY 09/29/22 03/09/24 History release 24 hr rivaroxaban 20 mg tablet (Xarelto) 20 mg PO DAILY 09/29/22 03/19/24 History rosuvastatin 5 mg tablet 5 mg PO DAILY 09/29/22 03/09/24 History telmisartan 40 mg tablet 40 mg PO DAILY 09/29/22 03/09/24 History fluticasone propionate 50 1 - 2 spray intranasal BID #16 mL 08/25/23 03/09/24 Rx mcg/actuation nasal spray,suspension (Flonase Allergy Relief) Allergies Allergy/AdvReac Type Severity Reaction Status Date / Time topiramate Allergy Unknown Hives, Verified 03/19/24 12:09 itching Vital Signs Vital Signs - 24 hr 03/19/24 12:10 Temperature 96.5 F L Pulse Rate 52 L Respiratory Rate 20 Blood Pressure 164/76 H Pulse Oximetry 99 Oxygen Delivery Room Air Exam Const: General: comfortable and no acute distress HENMT: Face/Nose/Sinus: Normal nares present Eyes: General: appearance normal, both eyes and all related structures Neck: Neck: no JVD Resp: Auscultation: clear to auscultation bilaterally Cardio: Rate: regular rate Rhythm: regular rhythm GI: Inspection: non-distended GI Palp: Yes Soft to palpation Skin: General skin exam: normal color Neuro: General: gait normal Speech: normal speech Extrem: General: normal to inspection Psych: Mental Status: mental status grossly normal Assessment and Plan Assessment and plan (1) Colon cancer screening: Code(s): Z12.11 - Encounter for screening for malignant neoplasm of colon Status: Acute Assessment and Plan: colonoscopy
[2024-03-19 13:17] VITALS: BP 149/90; PULSE 58; RESP 20; O2SAT 98
[2024-03-19 13:27] VITALS: BP 147/88; PULSE 57; RESP 16; O2SAT 99
[2024-03-19 13:47] VITALS: BP 170/94; PULSE 59; RESP 16; O2SAT 99
[2024-03-19] MEDS: hydrALAZINE HCL 20 MG/ML VIAL 10 MG IV PUSH (13:51)
[2024-03-19 13:59] VITALS: BP 171/86
[2024-03-19 14:03] VITALS: BP 164/85
== END 2024-03-19 14:14 | disposition home or self-care (01) ==
PROVIDERS: PCP Internal Medicine; Visit Provider Internal Medicine Gastroenterology
PROC: 0DJD8ZZ Inspection of Lower Intestinal Tract, Via Natural or Artificial Opening Endoscopic (ICD-10-PCS; CPT 45378; principal; 2024-03-19 13:30)
DX: Z12.11 Encounter for screening for malignant neoplasm of colon (principal); D12.2 Benign neoplasm of ascending colon; K63.5 Polyp of colon; K64.8 Other hemorrhoids; K57.30 Diverticulosis of large intestine without perforation or abscess without bleeding; G47.33 Obstructive sleep apnea (adult) (pediatric); E78.2 Mixed hyperlipidemia; K21.9 Gastro-esophageal reflux disease without esophagitis; E66.9 Obesity, unspecified; Z68.36 Body mass index [BMI] 36.0-36.9, adult; Z79.84 Long term (current) use of oral hypoglycemic drugs; Z79.01 Long term (current) use of anticoagulants; Z79.899 Other long term (current) drug therapy; Z99.89 Dependence on other enabling machines and devices; Z86.711 Personal history of pulmonary embolism; Z86.718 Personal history of other venous thrombosis and embolism; Z85.6 Personal history of leukemia
CPT/HCPCS: 45385; 88305; J0360; J2003; J2704; J7120

== ENCOUNTER 2024-12-01 15:20 | Outpatient (CLI) | payer BC, SELFPAY ==
--- NOTE | ~2024-12-01 | XR_ITS ---
XR lumbar spine min 4V Indication: RT SIDED LBP x1 MONTH Comparison: None Findings: No fracture, no subluxation flexion and extension. Moderate loss of disc height throughout Soft tissues unremarkable Impression: No acute abnormality. Reviewed, dictated and finalized at location P. Impression: No acute abnormality.
== END 2024-12-01 15:21 | disposition home or self-care (01) ==
LOC: MICIMG 15:21
PROVIDERS: PCP Internal Medicine; Visit Provider Internal Medicine
DX: M54.16 Radiculopathy, lumbar region (principal)
CPT/HCPCS: 72110